=== PATIENT | male | born 1955 | race Caucasian/White ===

== ENCOUNTER 2016-07-28 16:12 | Inpatient (IN) | payer BC ==
[2016-07-28] MEDS: Sodium Chloride 0.9% 10 ML Syringe FLUSH PRN (16:37)
--- NOTE | 2016-07-28 16:40 | CT ---
Head CT Technique: Multiple axial sections through the brain were obtained. Intravenous contrast was not utilized. Comparison: No previous intracranial imaging. Findings: Small air-fluid level is noted within the left maxillary sinus. Several minimal retention cysts are partially seen within both maxillary sinuses. Mild mucosal thickening is seen within the ethmoid sinus on the left side. Uncertain if the air-fluid level is due to acute sinusitis or retained secretions. Ventricles along with basal cisterns and sulci over the convexities are within normal limits. No abnormal parenchymal densities are seen. No evidence of intracranial hemorrhage. No midline shift or mass effect is seen. No discrete calvarial abnormality is noted. Mastoid sinuses that are seen are clear. Middle ear cavities appear to be clear. Impression: 1. Sinus findings as noted above. 2. No acute intracranial abnormality is identified. Diagnostic code #3
--- NOTE | 2016-07-28 16:56 | EDM.PDOC ---
ED HPI NEURO - General Chief Complaint: Neuro Symptoms/Deficits Stated Complaint: [facility] Time Seen by Provider: 07/28/16 16:19 Source of Information: Reports: Patient, EMS History Limitations: Reports: No limitations - History of Present Illness INITIAL COMMENTS - FREE TEXT/NARRATIVE: The patient presents with left sided facial numbness, chest pain and shortness of breath. The patient says for about 3 days he has had left sided facial numbness. It comes and goes and the past 2 morning he woke up with it. He has chronic left arm numbness from neck injury with surgery so he is not sure if he has numbness into his left hand. His leg was not affected. Today he was at a [facility] and when he stood up he felt lightheaded, had some shortness of breath and some chest pressure. He went to the bathroom and did not feel any better. He told someone he did not feel right and they called 911. His blood sugar was in the 180s. He also had some of that facial numbness. It is all gone now. He has no headache, fever, chills, cough, congestion, runny nose , abdominal rodríguez or vomiting. He did feel nauseated when the CP came on. He has no history of heart problems. His BP was a little high when he arrived at 190 systolic. Timing/Duration: Reports: Day(s): (3) Location (Neuro Complaint): Reports: face Quality (Neuro Complaint): Reports: numbness (Left side) Severity: mild Improves with: Reports: None Worsens with: Reports: None Associated Symptoms: Reports: shortness of breath, chest pain. Denies: confusion, headaches, cough, fever/chills, loss of appetite, nausea/vomiting - Related Data Allergies/ADRs: Allergies Allergy/AdvReac Type Severity Reaction Status Date / Time No Known Allergies Allergy Verified 07/28/16 16:44 Home Meds: Home Meds Albuterol [Proair HFA] 2 puff INH Q4HR PRN 04/04/16 [History] Exenatide [Byetta] 10 mg SQ DAILY 04/04/16 [History] Fluticasone Propionate [Flovent HFA 110 MCG] 2 puff INH BID PRN 04/04/16 [ History] Lansoprazole 1 cap PO DAILY 04/04/16 [History] Lisinopril 10 mg PO DAILY 04/04/16 [History] Pioglitazone HCl 45 mg PO DAILY PRN 04/04/16 [History] Sildenafil [Viagra] 1 dose PO ASDIRECTED 04/04/16 [History] Triamcinolone Acetonide [Kenalog 0.1% Crm] 1 applic TOP BID 04/04/16 [History] Zolpidem [Ambien] 10 mg PO BEDTIME 04/04/16 [History] glipiZIDE [Glipizide Xl] 10 mg PO BID 04/04/16 [History] Gabapentin [Neurontin] 900 mg PO DAILY 04/05/16 [History] Past Medical History HEENT History: Reports: Other (see below) Other HEENT History: strep throat, wears glasses Respiratory History: Reports: Asthma, Bronchitis, recurrent, COPD, Other (see below) Other Respiratory History: cough, emyphysema, URI Gastrointestinal History: Reports: Chronic constipation, GERD, Other (see below) Other Gastrointestinal History: rectal bleeding Genitourinary History: Reports: Other (see below) Other Genitourinary History: anorgasminsa, ED, low testosterone, hesitency, L orchiectomy Musculoskeletal History: Reports: Other (see below) Other Musculoskeletal History: plantar fasciitis, neck surgery Neurological History: Reports: Neuropathy, peripheral Psychiatric History: Reports: Anxiety, Other (see below) Other Psychiatric History: fatigue, insomnia Endocrine/Metabolic History: Reports: Diabetes, type II, Vitamin D deficiency Oncologic (Cancer) History: Reports: Other (see below) Other Oncologic History: testicular Dermatologic History: Reports: Eczema, Other (see below) Other Dermatologic History: skin tags, onychomycisis, rask tinea pedis, eczema - Past Surgical History GI Surgical History: Reports: Colonoscopy Social & Family History - Tobacco Use Smoking Status *Q: Former Smoker Month Tobacco Last Used: 2014 Second Hand Smoke Exposure: No - Alcohol Use Days Per Week of Alcohol Use: 2 Number of Drinks Per Day: 0 Total Drinks Per Week: 0 - Recreational Drug Use Recreational Drug Use: No Drug Use in Last 12 Months: No ED ROS GENERAL - Review of Systems Review Of Systems: See Below Constitutional: Reports: no symptoms HEENT: Reports: No symptoms Respiratory: Reports: shortness of breath Cardiovascular: Reports: Chest pain, Lightheadedness Endocrine: Reports: no symptoms GI/Abdominal: Reports: No symptoms : Reports: no symptoms Musculoskeletal: Reports: no symptoms Skin: Reports: no symptoms Neurological: Reports: numbness (Left side of his face) ED EXAM, NEURO - Physical Exam Exam: See Below Exam Limited By: No limitations General Appearance: alert, no apparent distress Ears: normal external exam Nose: normal inspection Head Exam: atraumatic, normocephalic Neck: normal inspection Respiratory/Chest: no respiratory distress, lungs clear, normal breath sounds Cardiovascular: regular rate, rhythm, no edema, no murmur GI/Abdominal: soft, non tender, no organomegaly, no mass Neurological: alert, no motor/sensory deficits, oriented x 3 Back Exam: normal inspection Extremities: normal inspection EKG INTERPRETATION EKG Date: 07/28/16 Time: 16:19 Rhythm: NSR Rate (beats/min): 89 [employer]: normal P-wave: present QRS: normal ST-T: normal QT: normal Course - Vital Signs Last Recorded V/S: Last Vital Signs Temp 97.5 F 07/28/16 16:20 Pulse 91 07/28/16 16:20 Resp 18 07/28/16 16:20 BP 190/84 H 07/28/16 16:20 Pulse Ox 95 07/28/16 16:20 - Orders/Labs/Meds Orders: Active Orders 24 hr Category Date Time Status Cardiac Monitoring [RC] . DIRECTED Care 07/28/16 16:19 Active EKG Documentation Completion [RC] STAT Care 07/28/16 16:20 Active Oxygen Therapy [RC] PRN Care 07/28/16 16:19 Active Peripheral IV Care [RC] . DIRECTED Care 07/28/16 16:20 Active Chest 1V Frontal [CR] Stat Exams 07/28/16 16:20 Taken CRP [C-REACTIVE PROTEIN] [CHEM] Stat Lab 07/28/16 17:51 Ordered FOLATE, RBC [REF] Stat Lab 07/28/16 17:50 Ordered GLYCOSYLATED HEMOGLOBIN,HGBA1C [CHEM] Stat Lab 07/28/16 17:51 Ordered SEDIMENTATION RATE AUTO [HEME] Stat Lab 07/28/16 17:51 Ordered TSH [CHEM] Stat Lab 07/28/16 17:51 Ordered VITAMIN B12 [CHEM] Stat Lab 07/28/16 17:50 Ordered Sodium Chloride 0.9% [Saline Flush] Med 07/28/16 16:19 Active 10 ml FLUSH ASDIRECTED PRN Peripheral IV Insertion Adult [OM.PC] Stat Oth 07/28/16 16:19 Ordered Medication Orders Sodium Chloride (Saline Flush) 10 ml FLUSH ASDIRECTED PRN PRN Reason: Keep Vein Open Last Admin: 07/28/16 16:37 Dose: 10 ml Labs: Laboratory Tests 07/28/16 07/28/16 07/28/16 Range/Units 16:42 16:42 16:42 WBC 8.56 (4.23-9.07) K/mm3 RBC 4.88 (4.63-6.08) M/mm3 Hgb 15.5 (13.7-17.5) gm/L Hct 45.7 (40.1-51.0) % MCV 93.6 H (79.0-92.2) fl MCH 31.8 (25.7-32.2) pg MCHC 33.9 (32.2-35.5) g/dl RDW Std Deviation 50.0 H (35.1-43.9) fL Plt Count 215 (163-337) K/mm3 MPV 9.6 (9.4-12.3) fl Neut % (Auto) 70.9 H (34.0-67.9) % Lymph % (Auto) 16.1 L (21.8-53.1) % [place] % (Auto) 9.9 (5.3-12.2) % Eos % (Auto) 2.1 (0.8-7.0) Baso % (Auto) 0.5 (0.1-1.2) % Neut # 6.07 H (1.78-5.38) K/mm3 Lymph # 1.38 (1.32-3.57) K/mm3 [place] # 0.85 H (0.30-0.82) K/mm3 Eos # 0.18 (0.04-0.54) K/mm3 Baso # 0.04 (0.01-0.08) K/mm3 D-Dimer, Quantitative 0.40 (0.19-0.59) mg/L Sodium 136 (136-145) mEq/L Potassium 4.7 (3.5-5.1) mEq/L Chloride 99 (98-107) mEq/L Carbon Dioxide 26 (21-32) mEq/L Anion Gap 15.7 H (5-15) BUN 12 (7-18) mg/dL Creatinine 1.2 (0.7-1.3) mg/dL Est Cr Clr Drug Dosing 69.72 mL/min Estimated GFR (MDRD) > 60 (>60) mL/min BUN/Creatinine Ratio 10.0 L (14-18) Glucose 183 H (74-106) mg/dL Calcium 9.1 (8.5-10.1) mg/dL Total Bilirubin 0.5 (0.2-1.0) mg/dL AST 29 (15-37) U/L ALT 43 (16-63) U/L Alkaline Phosphatase 55 (46-116) U/L Troponin I < 0.017 (0.00-0.056) ng/mL Total Protein 7.6 (6.4-8.2) g/dl Albumin 3.7 (3.4-5.0) g/dl Globulin 3.9 gm/dL Albumin/Globulin Ratio 1.0 (1-2) Meds: Medications Generic Name Dose Route Start Last Admin Trade Name Freq PRN Reason Stop Dose Admin Sodium Chloride 10 ml 07/28/16 16:19 07/28/16 16:37 Saline Flush FLUSH 10 ml ASDIRECTED PRN Administration Keep Vein Open Discontinued Medications Generic Name Dose Route Start Last Admin Trade Name Freq PRN Reason Stop Dose Admin Aspirin 324 mg 07/28/16 17:48 07/28/16 17:53 Aspirin PO 07/28/16 17:49 324 mg ONETIME ONE Administration - Re-Assessments/Exams Free Text/Narrative Re-Assessment/Exam: 07/28/16 16:58 I ordered an IV saline lock, EKG, CXR, labs and CT of his head. 07/28/16 17:53 His EKG shows a NSR. His CT shows nothing acute. His CBC looks good. His glucose was elevated at 188. His troponin was negative. He had an episode when he was here. I feel he needs to be admitted. I called Dr Hutchins and she agreed to the admission but she did want me to call [facility] in [place] and see if they will take him. I did call there and talked with Dr Shah and he did not think he needed to come down at this time. I gave him some aspirin and ordered some more labs. Departure - Departure Time of Disposition: 18:00 Disposition: Admitted As Inpatient 66 Condition: good Clinical Impression: TIA (transient ischemic attack) Qualifiers: Transient cerebral ischemia type: unspecified Qualified Code(s): G45.9 - Transient cerebral ischemic attack, unspecified Chest pain Qualifiers: Chest pain type: unspecified Qualified Code(s): R07.9 - Chest pain, unspecified Dyspnea Qualifiers: Dyspnea type: unspecified Qualified Code(s): R06.00 - Dyspnea, unspecified Forms: ED Department Discharge - My Orders Last 24 Hours: My Active Orders 07/28/16 16:19 Cardiac Monitoring [RC] . DIRECTED Oxygen Therapy [RC] PRN Sodium Chloride 0.9% [Saline Flush] 10 ml FLUSH ASDIRECTED PRN Peripheral IV Insertion Adult [OM.PC] Stat 07/28/16 16:20 EKG Documentation Completion [RC] STAT Peripheral IV Care [RC] . DIRECTED Chest 1V Frontal [CR] Stat 07/28/16 17:50 FOLATE, RBC [REF] Stat VITAMIN B12 [CHEM] Stat 07/28/16 17:51 CRP [C-REACTIVE PROTEIN] [CHEM] Stat GLYCOSYLATED HEMOGLOBIN,HGBA1C [CHEM] Stat SEDIMENTATION RATE AUTO [HEME] Stat TSH [CHEM] Stat - Assessment/Plan Last 24 Hours: My Active Orders 07/28/16 16:19 Cardiac Monitoring [RC] . DIRECTED Oxygen Therapy [RC] PRN Sodium Chloride 0.9% [Saline Flush] 10 ml FLUSH ASDIRECTED PRN Peripheral IV Insertion Adult [OM.PC] Stat 07/28/16 16:20 EKG Documentation Completion [RC] STAT Peripheral IV Care [RC] . DIRECTED Chest 1V Frontal [CR] Stat 07/28/16 17:50 FOLATE, RBC [REF] Stat VITAMIN B12 [CHEM] Stat 07/28/16 17:51 CRP [C-REACTIVE PROTEIN] [CHEM] Stat GLYCOSYLATED HEMOGLOBIN,HGBA1C [CHEM] Stat SEDIMENTATION RATE AUTO [HEME] Stat TSH [CHEM] Stat
[2016-07-28] MEDS ORDERED: Aspirin 81 MG Tab.Chew PO ONE (17:48)
[2016-07-28] MEDS ORDERED: Pneumococcal Polyvalent-23 Vaccine 0.5 ML SDV IM ONE (20:03)
[2016-07-28] MEDS ORDERED: Albuterol 6.7 GM Inhaler INH PRN (20:56)
[2016-07-28] MEDS ORDERED: Fluticasone Propionate 110 MCG/Puff 12 GM Inhaler INH PRN (20:56)
--- NOTE | 2016-07-28 21:27 | PCM.HP ---
H&P History of Present Illness - General Date of Service: 07/28/16 Admit Problem/Dx: Admission Diagnosis/Problem Admission Diagnosis/Problem TIA, Transient ischemic attack Source of Information: Patient, Provider History Limitations: Reports: No limitations - History of Present Illness Initial Comments - Free Text/Narative: 60 year old male with no prior hx of CVA presents with left sided facial numbness, intermittent more persistent on the day of admission. Has a history of chronic left side numbness of U/L extremities post cervical neck surgery. He denies change in vision, speech, headache, fever, chills, LOC or trauma. His reported facial droop on the left side. The patient's neuro exam was unremarkable, except for feeling like he had numbness on the left which began near the labial fold. Stated it felt like he had had a novcaine injection. Onset of Symptoms: Reports: gradual Symptom Onset Date: 07/26/16 Duration of Symptoms: Reports: Day(s):, Getting worse, Intermittent Location: Reports: face (left side) Quality: Reports: Same as previous episode, Other (numbness) Severity: moderate Improves with: Reports: None Worsens with: Reports: None Associated Symptoms: Reports: weakness (LE) - Related Data Allergies/Adverse Reactions: Allergies Allergy/AdvReac Type Severity Reaction Status Date / Time No Known Allergies Allergy Verified 07/28/16 16:44 Home Medications: Home Meds Albuterol [Proair HFA] 2 puff INH Q4HR PRN 04/04/16 [History] Exenatide [Byetta] 10 mg SQ DAILY 04/04/16 [History] Fluticasone Propionate [Flovent HFA 110 MCG] 2 puff INH BID PRN 04/04/16 [ History] Lansoprazole 1 cap PO DAILY 04/04/16 [History] Lisinopril 10 mg PO DAILY 04/04/16 [History] Pioglitazone HCl 45 mg PO DAILY PRN 04/04/16 [History] Sildenafil [Viagra] 1 dose PO ASDIRECTED 04/04/16 [History] Triamcinolone Acetonide [Kenalog 0.1% Crm] 1 applic TOP BID 04/04/16 [History] Zolpidem [Ambien] 10 mg PO BEDTIME 04/04/16 [History] glipiZIDE [Glipizide Xl] 10 mg PO BID 04/04/16 [History] Gabapentin [Neurontin] 900 mg PO DAILY 04/05/16 [History] Past Medical History HEENT History: Reports: Other (see below) Other HEENT History: strep throat, wears glasses Respiratory History: Reports: Asthma, Bronchitis, recurrent, COPD, Other (see below) Other Respiratory History: cough, emyphysema, URI Gastrointestinal History: Reports: Chronic constipation, GERD, Other (see below) Other Gastrointestinal History: rectal bleeding Genitourinary History: Reports: Other (see below) Other Genitourinary History: anorgasminsa, ED, low testosterone, hesitency, L orchiectomy Musculoskeletal History: Reports: Other (see below) Other Musculoskeletal History: plantar fasciitis, neck surgery Neurological History: Reports: Neuropathy, peripheral Psychiatric History: Reports: Anxiety, Other (see below) Other Psychiatric History: fatigue, insomnia Endocrine/Metabolic History: Reports: Diabetes, type II, Obesity/BMI 30+, Vitamin D deficiency Oncologic (Cancer) History: Reports: Other (see below) 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 Dermatologic History: Reports: Eczema, Other (see below) Other Dermatologic History: skin tags, onychomycisis, rask tinea pedis, eczema - Past Surgical History GI Surgical History: Reports: Colonoscopy Endocrine Surgical History: Reports: None Neurological Surgical History: Reports: None Social & Family History - Family History Family Medical History: Noncontributory - Tobacco Use Smoking Status *Q: Former Smoker Years of Tobacco use: 40 Packs/Tins Daily: 1 Used Tobacco, but Quit: Yes Month Tobacco Last Used: 05/18/15 Second Hand Smoke Exposure: No - Caffeine Use Caffeine Use: Reports: Coffee Other Caffeine Use: 2 cups coffee daily - Alcohol Use Days Per Week of Alcohol Use: 2 Number of Drinks Per Day: 0 Total Drinks Per Week: 0 - Recreational Drug Use Recreational Drug Use: No Drug Use in Last 12 Months: No H&P Review of Systems - Review of Systems: Review Of Systems: See Below General: Reports: no symptoms HEENT: Reports: no symptoms Pulmonary: Reports: no symptoms Cardiovascular: Reports: no symptoms Gastrointestinal: Reports: No symptoms Genitourinary: Reports: no symptoms Musculoskeletal: Reports: no symptoms Skin: Reports: no symptoms Psychiatric: Reports: no symptoms Neurological: Reports: other (facial numbness) Hematologic/Lymphatic: Reports: no symptoms Immunologic: Reports: no symptoms Exam - Exam Exam: See Below - Vital Signs Vital Signs: Last Vital Signs Temp 36.6 C 07/28/16 19:36 Pulse 87 07/28/16 19:36 Resp 18 07/28/16 19:36 BP 150/82 H 07/28/16 19:36 Pulse Ox 95 07/28/16 19:36 Weight: 127.641 kg - Exam Quality Assessment: supplemental oxygen, DVT prophylaxis General: alert, oriented, cooperative HEENT: Conjunctiva clear, EOMI, Nares patent, Normal nasal septum, Pupils equal , Pupils reactive Neck: supple, trachea midline Lungs: Normal respiratory effort Cardiovascular: regular rate, regular rhythm Abdomen: normal bowel sounds, soft (Male) Exam: Deferred Rectal (Males) Exam: Deferred Back Exam: normal inspection Extremities: normal pulses Skin: warm Neurological: cranial nerves intact, reflexes equal bilateral, normal gait, normal speech, other (numbness left sided labia fold to chin) Neuro Extensive - Mental Status: alert, oriented x3, normal mood/affect, normal cognition, memory intact Neuro Extensive - Motor, Sensory, Reflexes: CN II-XII intact Psychiatric: alert, normal affect, normal mood - Patient Data Lab Results last 24 hrs: Laboratory Results - last 24 hr 07/28/16 Range/Units 20:41 POC Glucose 205 H (70-105) mg/dL Result Diagrams: 07/29/16 05:41 07/29/16 05:41 *Q Meaningful Use (ADM) - VTE *Q VTE Criteria *Q: - Stroke *Q Stroke Criteria *Q: - AMI *Q AMI Criteria *Q: Problem List Initiated/Reviewed/Updated: Yes Orders Last 24hrs: Active Orders 24 hr Category Date Time Status Antiembolic Devices [RC] PER UNIT ROUTINE Care 07/28/16 21:17 Active Bedrest Bathroom Privileges [RC] ASDIRECTED Care 07/28/16 21:04 Active Blood Glucose Check, Bedside [RC] QIDACANDBED Care 07/28/16 20:47 Active Neuro Check [RC] BID Care 07/28/16 21:03 Active Vital Signs [RC] PER UNIT ROUTINE Care 07/28/16 21:04 Active Consult to Service Unit Operator Oil Well [Consult to Diabetic Nurse Cons 07/29/16 14:00 Active Specialist] [CONS] Routine Consult to Occupational Therapy [OT Evaluation and Cons 07/30/16 13:00 Active Treatment] [CONS] Routine Consult to Physical Therapy [PT Evaluation and Cons 07/29/16 12:00 Active Treatment] [CONS] Routine Consult to Clothes Designer [CONS] Routine Cons 07/29/16 09:00 Active ADA Diabetic [[employer] Diet] [DIET Diet 07/29/16 Breakfast Active ] Brain w wo Cont [MR] Routine Exams 07/29/16 08:00 Ordered Carotid Comp [US] Routine Exams 07/29/16 09:00 Ordered Echo Comp wo Cont [US] Routine Exams 07/29/16 09:00 Ordered BASIC METABOLIC PANEL,BMP [CHEM] DAILY Lab 07/29/16 05:00 Ordered BASIC METABOLIC PANEL,BMP [CHEM] DAILY Lab 07/30/16 05:00 Ordered BASIC METABOLIC PANEL,BMP [CHEM] DAILY Lab 07/31/16 05:00 Ordered CBC WITH AUTO DIFF [HEME] DAILY Lab 07/29/16 05:00 Ordered CBC WITH AUTO DIFF [HEME] DAILY Lab 07/30/16 05:00 Ordered CBC WITH AUTO DIFF [HEME] DAILY Lab 07/31/16 05:00 Ordered LIPID PANEL [CHEM] Routine Lab 07/29/16 05:00 Ordered Albuterol [Proventil HFA] Med 07/28/16 20:56 Active 0 gm INH Q4H PRN Aspirin [Halfprin] Med 07/29/16 09:00 Active 81 mg PO DAILY Enoxaparin [Lovenox] Med 07/29/16 09:00 Ordered 40 mg SUBCUT DAILY Fluticasone Propionate [Flovent HFA 110 MCG] Med 07/28/16 20:56 Ordered DOSE gm INH BID PRN Gabapentin [Neurontin] Med 07/29/16 09:00 Ordered 900 mg PO DAILY Insulin Aspart [NovoLOG] Med 07/28/16 22:00 Active See Protocol SUBCUT QIDACANDBED Lisinopril [Prinivil] Med 07/29/16 09:00 Ordered 10 mg PO DAILY Triamcinolone Acetonide [Triamcinolone Acetonide 0.1% Med 07/28/16 21:00 Ordered Crm] DOSE gm TOP BID Zolpidem [Ambien] Med 07/28/16 21:00 Ordered 10 mg PO BEDTIME TRINI Hose [Antiembolic Hose] [OM.PC] Routine Oth 07/28/16 21:17 Ordered Medication Orders Albuterol (Proventil Hfa) 0 gm INH Q4H PRN PRN Reason: Shortness of Breath Aspirin (Halfprin) 81 mg PO DAILY BRIONNA Fluticasone Propionate (Flovent Hfa 110 Mcg) gm INH BID PRN PRN Reason: Shortness of Breath Gabapentin (Neurontin) 900 mg PO DAILY BRIONNA Insulin Aspart (Novolog) 0 unit SUBCUT QIDACANDBED BRIONNA PRN Reason: Protocol Lisinopril (Prinivil) 10 mg PO DAILY [facility] Sodium Chloride (Saline Flush) 10 ml FLUSH ASDIRECTED PRN PRN Reason: Keep Vein Open Last Admin: 07/28/16 16:37 Dose: 10 ml Triamcinolone Acetonide (Triamcinolone Acetonide 0.1% Crm) gm TOP BID BRIONNA Zolpidem Tartrate (Ambien) 10 mg PO BEDTIME BRIONNA Assessment/Plan Comment:: Impression: TIA recurrence over 3 days, more persistent on the day of admission HTN, systolic markedly elevated on presentation Neuro eval on going, labs are pending History of cervical procedure with long standing left sided extremity numbness, relatively unchanged. Chronic DM COPD Obesity GERD Vitamin D deficiency Anxiety Plan: Home meds, follow BP, will need higher at least SBP>130 for now. Swallow eval, bedside ADA, 2000 after eval Novolog SS, mild CVA protocol Imaging on 07/29/16 DVT/GI prophylaxis Consults: PT/OT/SW/DM educator
[2016-07-28] MEDS: Zolpidem 10 MG Tab PO SCH (21:41)
[2016-07-28] MEDS: Insulin Aspart 100 Units/ML 3 ML Pen SUBCUT SCH (21:41)
[2016-07-28] MEDS: Triamcinolone Acetonide 0.1% Crm 15 GM Tube TOP SCH (21:44)
--- NOTE | 2016-07-29 07:36 | CR ---
Chest: Portable view of the chest was obtained. Comparison: Previous chest x-ray of 03/06/16. Heart size and mediastinum are within normal limits for portable technique. Lungs are clear with no acute infiltrates. Degenerative endplate spurring is seen within the spine. Previous cervical spine surgery is also noted. Old healed right clavicle deformity is seen. Impression: 1. Incidental bone findings. 2. Nothing acute is identified on portable chest x-ray. Diagnostic code #2
[2016-07-29] MEDS ORDERED: Diazepam 5 MG Tab PO ONE (07:55)
[2016-07-29] MEDS: Lisinopril 10 MG Tab PO SCH (08:01)
[2016-07-29] MEDS: Aspirin 81 MG Tab.EC PO SCH (08:01)
[2016-07-29] MEDS: Gabapentin 300 MG Cap PO SCH (08:01)
[2016-07-29] MEDS: Enoxaparin 40 MG/0.4 ML Syringe SUBCUT SCH (08:03)
[2016-07-29] MEDS: Insulin Aspart 100 Units/ML 3 ML Pen SUBCUT SCH ×4 (08:04→21:09)
[2016-07-29] MEDS: Triamcinolone Acetonide 0.1% Crm 15 GM Tube TOP SCH ×2 (08:31→21:17)
[2016-07-29] MEDS ORDERED: Diphtheria,Pertussis(Acell),Tetanus Vaccine 0.5 ML SDV inactive IM ONE (09:27)
[2016-07-29] MEDS ORDERED: Pneumococcal Polyvalent-23 Vaccine 0.5 ML SDV IM ONE (09:27)
[2016-07-29] MEDS ORDERED: Gadobenate Dimeglumine 529 MG/ML 20 ML SDV IVPUSH ONE (11:40)
[2016-07-29] MEDS: Sodium Chloride 0.9% 10 ML Syringe FLUSH PRN (12:17)
[2016-07-29] MEDS ORDERED: Acetaminophen 325 MG Tab PO PRN (13:44)
--- NOTE | 2016-07-29 14:18 | MR ---
MRI brain (with and without contrast) Technique: T1 sagittal; T2, T2 FLAIR, diffusion and T1 axial; T1 sagittal; T1 coronal; post-gadolinium T1 axial and post-gadolinium T1 coronal images were obtained. Comparison: Previous head CT study of 07/28/16. Findings: Ventricles along with basal cisterns and sulci over the convexities appear within normal limits for the patient's age. Mild mucosal thickening seen within both maxillary sinuses as well as bilateral retention cysts. Mild mucosal thickening seen within the ethmoid sinuses. Normal signal void is seen within the major cerebral arteries within the skull base. No acute diffusion abnormality is identified. No abnormal signal is seen within the brain parenchyma. No midline shift or mass effect is seen. No abnormal enhancement identified within the brain parenchyma. Impression: 1. Chronic appearing sinus findings as described above. 2. Other portions of the MRI study of the brain appear unremarkable. No acute diffusion abnormalities are seen. Diagnostic code #2
--- NOTE | 2016-07-29 14:42 | US ---
Carotid ultrasound: Duplex and color flow imaging was obtained of the carotid arteries. Comparison: No previous study. No significant plaque is identified. Velocity measurements Right side: CCA has a peak systolic velocity of 0.79 m/s. ICA has a peak systolic velocity of 0.75 m/s and peak end-diastolic velocity of 0.25 m/s. ECA has a peak systolic velocity of 1.05 m/s. Vertebral artery has a peak systolic velocity of 0.44 m/s. ICA/CCA ratio is 0.94. Left side: CCA has a peak systolic velocity of 1.09 m/s. ICA has a peak systolic velocity of 0.76 m/s with peak end-diastolic velocity of 0.21 m/s. ECA has a peak systolic velocity of 0.92 m/s. Vertebral artery has a peak systolic velocity of 0.39 m/s. ICA/CCA ratio is 0.70. Impression: 1. No significant plaque. Normal velocity measurements are noted. Diagnostic code #1
--- NOTE | 2016-07-29 19:44 | PCM.PN ---
- General Info Date of Service: 07/29/16 Functional Status: Reports: pain controlled, tolerating diet, ambulating, urinating - Review of Systems General: Reports: no symptoms HEENT: Reports: no symptoms Pulmonary: Reports: no symptoms Cardiovascular: Reports: no symptoms Gastrointestinal: Reports: No symptoms Genitourinary: Reports: no symptoms Musculoskeletal: Reports: no symptoms Skin: Reports: no symptoms Neurological: Reports: paresthesia (facial) Psychiatric: Reports: no symptoms - Patient Data Vitals - most recent: Last Vital Signs Temp 37.2 C 07/29/16 15:28 Pulse 83 07/29/16 15:28 Resp 18 07/29/16 15:28 BP 152/88 H 07/29/16 15:28 Pulse Ox 93 L 07/29/16 15:28 Weight - most recent: 127.641 kg I&O - last 24 hours: Intake & Output 07/29/16 07/29/16 07/29/16 06:59 14:59 22:59 Intake Total 450 1060 800 Output Total 1100 4600 Balance -650 1060 -3800 Lab Results last 24 hrs: Laboratory Results - last 24 hr 07/28/16 07/29/16 07/29/16 Range/Units 20:41 05:41 05:41 WBC 5.91 (4.23-9.07) K/mm3 RBC 4.74 (4.63-6.08) M/mm3 Hgb 15.0 (13.7-17.5) gm/L Hct 44.8 (40.1-51.0) % MCV 94.5 H (79.0-92.2) fl MCH 31.6 (25.7-32.2) pg MCHC 33.5 (32.2-35.5) g/dl RDW Std Deviation 50.8 H (35.1-43.9) fL Plt Count 216 (163-337) K/mm3 MPV 10.5 (9.4-12.3) fl Neut % (Auto) 58.4 (34.0-67.9) % Lymph % (Auto) 18.8 L (21.8-53.1) % Island % (Auto) 17.3 H (5.3-12.2) % Eos % (Auto) 4.7 (0.8-7.0) Baso % (Auto) 0.5 (0.1-1.2) % Neut # 3.45 (1.78-5.38) K/mm3 Lymph # 1.11 L (1.32-3.57) K/mm3 Island # 1.02 H (0.30-0.82) K/mm3 Eos # 0.28 (0.04-0.54) K/mm3 Baso # 0.03 (0.01-0.08) K/mm3 Manual Slide Review Normal smear Sodium 135 L (136-145) mEq/L Potassium 4.3 (3.5-5.1) mEq/L Chloride 100 (98-107) mEq/L Carbon Dioxide 28 (21-32) mEq/L Anion Gap 11.3 (5-15) BUN 11 (7-18) mg/dL Creatinine 1.2 (0.7-1.3) mg/dL Est Cr Clr Drug Dosing 69.72 mL/min Estimated GFR (MDRD) > 60 (>60) mL/min BUN/Creatinine Ratio 9.2 L (14-18) Glucose 180 H (74-106) mg/dL POC Glucose 205 H (70-105) mg/dL Calcium 8.5 (8.5-10.1) mg/dL Triglycerides 153 H (<150) mg/dL Cholesterol 178 (<200) mg/dL LDL Cholesterol Direct 110 H* (<100) mg/dL HDL Cholesterol 55.0 (40-59) mg/dL 07/29/16 07/29/16 07/29/16 Range/Units 06:10 12:27 16:48 WBC (4.23-9.07) K/mm3 RBC (4.63-6.08) M/mm3 Hgb (13.7-17.5) gm/L Hct (40.1-51.0) % MCV (79.0-92.2) fl MCH (25.7-32.2) pg MCHC (32.2-35.5) g/dl RDW Std Deviation (35.1-43.9) fL Plt Count (163-337) K/mm3 MPV (9.4-12.3) fl Neut % (Auto) (34.0-67.9) % Lymph % (Auto) (21.8-53.1) % Island % (Auto) (5.3-12.2) % Eos % (Auto) (0.8-7.0) Baso % (Auto) (0.1-1.2) % Neut # (1.78-5.38) K/mm3 Lymph # (1.32-3.57) K/mm3 Island # (0.30-0.82) K/mm3 Eos # (0.04-0.54) K/mm3 Baso # (0.01-0.08) K/mm3 Manual Slide Review Sodium (136-145) mEq/L Potassium (3.5-5.1) mEq/L Chloride (98-107) mEq/L Carbon Dioxide (21-32) mEq/L Anion Gap (5-15) BUN (7-18) mg/dL Creatinine (0.7-1.3) mg/dL Est Cr Clr Drug Dosing mL/min Estimated GFR (MDRD) (>60) mL/min BUN/Creatinine Ratio (14-18) Glucose (74-106) mg/dL POC Glucose 189 H 210 H 159 H (70-105) mg/dL Calcium (8.5-10.1) mg/dL Triglycerides (<150) mg/dL Cholesterol (<200) mg/dL LDL Cholesterol Direct (<100) mg/dL HDL Cholesterol (40-59) mg/dL Med Orders - Current: Current Medications Acetaminophen (Tylenol) 650 mg PO Q4H PRN PRN Reason: Pain/Fever Last Admin: 07/29/16 13:50 Dose: 650 mg Albuterol (Proventil Hfa) 0 gm INH Q4H PRN PRN Reason: Shortness of Breath Aspirin (Halfprin) 81 mg PO DAILY [facility] Last Admin: 07/29/16 08:01 Dose: 81 mg Enoxaparin Sodium (Lovenox) 40 mg SUBCUT DAILY [facility] Last Admin: 07/29/16 08:03 Dose: 40 mg Fluticasone Propionate (Flovent Hfa 110 Mcg) 0 gm INH BID PRN PRN Reason: Shortness of Breath Gabapentin (Neurontin) 900 mg PO DAILY [facility] Last Admin: 07/29/16 08:01 Dose: 900 mg Insulin Aspart (Novolog) 0 unit SUBCUT QIDACANDBED [facility] PRN Reason: Protocol Last Admin: 07/29/16 17:35 Dose: 1 units Lisinopril (Prinivil) 10 mg PO DAILY [facility] Last Admin: 07/29/16 08:01 Dose: 10 mg Methylprednisolone Sodium Succinate (Solu-Medrol) 80 mg IVPUSH Q8H [facility] Sodium Chloride (Saline Flush) 10 ml FLUSH ASDIRECTED PRN PRN Reason: Keep Vein Open Last Admin: 07/29/16 12:17 Dose: 10 ml Triamcinolone Acetonide (Triamcinolone Acetonide 0.1% Crm) 0 gm TOP BID [facility] Last Admin: 07/29/16 08:31 Dose: Not Given Zolpidem Tartrate (Ambien) 10 mg PO BEDTIME [facility] Last Admin: 07/28/16 21:41 Dose: 10 mg Discontinued Medications Aspirin (Aspirin) 324 mg PO ONETIME ONE Stop: 07/28/16 17:49 Last Admin: 07/28/16 17:53 Dose: 324 mg Diazepam (Valium.) 5 mg PO ONETIME ONE Stop: 07/29/16 07:56 Last Admin: 07/29/16 08:01 Dose: 5 mg Diphtheria/Tetanus/Acell Pertussis (Boostrix) 0.5 ml IM .ONCE ONE Stop: 07/29/16 09:28 Gadobenate Dimeglumine (Multihance) 20 ml IVPUSH ONETIME ONE Stop: 07/29/16 11:41 Last Admin: 07/29/16 12:17 Dose: 20 ml Pneumococcal Polyvalent Vaccine (Pneumovax 23) 0.5 ml IM .ONCE ONE Stop: 07/28/16 20:04 Pneumococcal Polyvalent Vaccine (Pneumovax 23) 0.5 ml IM .ONCE ONE Stop: 07/29/16 09:28 - Exam Quality Assessment: supplemental oxygen, DVT prophylaxis General: alert, oriented, cooperative, no acute distress HEENT: Pupils equal, Pupils reactive, EOMI Neck: supple, trachea midline Lungs: Normal respiratory effort Cardiovascular: regular rate, regular rhythm Abdomen: bowel sounds present, soft, no tenderness, no distension (Male) Exam: Deferred Back Exam: normal inspection Extremities: normal pulses Skin: warm Neurological: no new focal deficit, normal gait, normal speech Psy/Mental Status: alert, normal affect, normal mood - Problem List Review Problem List Initiated/Reviewed/Updated: Yes - My Orders Last 24 Hours: My Active Orders 07/28/16 20:47 Blood Glucose Check, Bedside [RC] QIDACANDBED 07/28/16 20:56 Albuterol [Proventil HFA] 0 gm INH Q4H PRN Fluticasone Propionate [Flovent HFA 110 MCG] 0 gm INH BID PRN 07/28/16 21:00 Triamcinolone Acetonide [Triamcinolone Acetonide 0.1% Crm] 0 gm TOP BID Zolpidem [Ambien] 10 mg PO BEDTIME 07/28/16 21:03 Neuro Check [RC] BID 07/28/16 21:04 Bedrest Bathroom Privileges [RC] ASDIRECTED Vital Signs [RC] 03,09,15,21 07/28/16 21:17 Antiembolic Devices [RC] QSHIFT TRINI Hose [Antiembolic Hose] [OM.PC] Routine 07/28/16 22:00 Insulin Aspart [NovoLOG] See Protocol SUBCUT QIDACANDBED 07/29/16 09:00 Consult to Clam Grader [CONS] Routine Aspirin [Halfprin] 81 mg PO DAILY Enoxaparin [Lovenox] 40 mg SUBCUT DAILY Gabapentin [Neurontin] 900 mg PO DAILY Lisinopril [Prinivil] 10 mg PO DAILY 07/29/16 09:27 Vaccines to be Administered [RC] PER UNIT ROUTINE 07/29/16 12:00 Consult to Physical Therapy [PT Evaluation and Treatment] [CONS] Routine 07/29/16 13:44 Acetaminophen [Tylenol] 650 mg PO Q4H PRN 07/29/16 13:51 Resuscitation Status Routine 07/29/16 14:00 Consult to Shell Mold Bonder [Consult to Diabetic Nurse Specialist] [CONS] Routine 07/29/16 19:30 methylPREDNISolone Sod Succ [Solu-MEDROL] 80 mg IVPUSH Q8H 07/29/16 Breakfast ADA Diabetic [[place] [employer] Diet] [DIET] 07/30/16 05:00 BASIC METABOLIC PANEL,BMP [CHEM] DAILY CBC WITH AUTO DIFF [HEME] DAILY 07/30/16 13:00 Consult to Occupational Therapy [OT Evaluation and Treatment] [CONS] Routine 07/31/16 05:00 BASIC METABOLIC PANEL,BMP [CHEM] DAILY CBC WITH AUTO DIFF [HEME] DAILY - Plan Plan:: Impression: 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 Chronic DM COPD Obesity GERD Vitamin D deficiency Anxiety Plan: Start solumedrol Home meds. Novolog SS, mild CVA protocol DVT/GI prophylaxis Consults: PT/OT/SW/DM educator Neuro appt at DC
[2016-07-29] MEDS: methylPREDNISolone Sodium Succinate 40 MG/1 ML SDV IVPUSH SCH (21:03)
[2016-07-29] MEDS: Zolpidem 10 MG Tab PO SCH (21:03)
[2016-07-30] MEDS: methylPREDNISolone Sodium Succinate 40 MG/1 ML SDV IVPUSH SCH ×2 (04:56→11:06)
[2016-07-30] MEDS: Insulin Aspart 100 Units/ML 3 ML Pen SUBCUT SCH ×2 (08:05→12:33)
[2016-07-30] MEDS: Gabapentin 300 MG Cap PO SCH (08:05)
[2016-07-30] MEDS: Aspirin 81 MG Tab.EC PO SCH (08:05)
[2016-07-30] MEDS: Enoxaparin 40 MG/0.4 ML Syringe SUBCUT SCH (08:05)
[2016-07-30] MEDS: Lisinopril 10 MG Tab PO SCH (08:05)
[2016-07-30 08:06] VITALS: BP 155/82
[2016-07-30] MEDS: Triamcinolone Acetonide 0.1% Crm 15 GM Tube TOP SCH (08:06)
--- NOTE | 2016-07-30 12:14 | PCM.DCSUM1 ---
<Candida Hutchins M - Last Filed: 07/30/16 20:03> Discharge Summary - Hospital Course Free Text/Narrative:: See above, for follow up. - Discharge Data Discharge Disposition: Home, Self-Care 01 Condition: Good - Patient Summary/Data Consults: Consultations 07/29/16 09:00 Consult to Director Of Communications [CONS] Routine 07/29/16 12:00 Consult to Physical Therapy [PT Evaluation and Treatment] [CONS] Routine 07/29/16 14:00 Consult to Supplier Manager [Consult to Diabetic Nurse Specialist] [CONS] Routine - Discharge Plan Prescriptions/Med Rec: Aspirin [Halfprin] 81 mg PO DAILY #30 tab.ec Prednisone [IJD: predniSONE] 20 mg PO WITHBREAKFAST #5 tab Simvastatin [Zocor] 10 mg PO BEDTIME #10 tablet Home Medications: Home Meds Albuterol [Proair HFA] 2 puff INH Q4HR PRN 04/04/16 [History] Exenatide [Byetta] 10 mg SQ DAILY 04/04/16 [History] Fluticasone Propionate [Flovent HFA 110 MCG] 2 puff INH BID PRN 04/04/16 [ History] Lansoprazole 1 cap PO DAILY 04/04/16 [History] Lisinopril 10 mg PO DAILY 04/04/16 [History] Pioglitazone HCl 45 mg PO DAILY PRN 04/04/16 [History] Sildenafil [Viagra] 1 dose PO ASDIRECTED 04/04/16 [History] Triamcinolone Acetonide [Kenalog 0.1% Crm] 1 applic TOP BID 04/04/16 [History] Zolpidem [Ambien] 10 mg PO BEDTIME 04/04/16 [History] glipiZIDE [Glipizide Xl] 10 mg PO BID 04/04/16 [History] Gabapentin [Neurontin] 900 mg PO DAILY 04/05/16 [History] Aspirin [Halfprin] 81 mg PO DAILY #30 tab.ec 07/30/16 [Rx] Prednisone [IJD: predniSONE] 20 mg PO WITHBREAKFAST #5 tab 07/30/16 [Rx] Simvastatin [Zocor] 10 mg PO BEDTIME #10 tablet 07/30/16 [Rx] Patient Handouts: Smoking Cessation, Tips for Success, [id number], Asthma, Adult, Smoking Hazards, Transient Ischemic Attack, [id number] Forms: ED Department Discharge Referrals: Luba Guaman VOLCANOLOGY TEACHER [Primary Care Provider] - 08/06/16 10:30 am (Please follow up with Luba Guaman on Friday at 10:30am) - Patient Data Vitals - Most Recent: Last Vital Signs Temp 37.1 C 07/30/16 08:23 Pulse 77 07/30/16 08:23 Resp 20 07/30/16 08:23 BP 155/82 H 07/30/16 08:23 Pulse Ox 95 07/30/16 08:23 I&O - Last 24 hours: Intake & Output 07/30/16 07/30/16 07/30/16 06:59 14:59 22:59 Intake Total 400 320 Balance 400 320 Lab Results - Last 24 hrs: Laboratory Results - last 24 hr 07/29/16 07/30/16 07/30/16 Range/Units 21:09 06:26 06:50 WBC 7.50 (4.23-9.07) K/mm3 RBC 5.02 (4.63-6.08) M/mm3 Hgb 15.9 (13.7-17.5) gm/L Hct 47.3 (40.1-51.0) % MCV 94.2 H (79.0-92.2) fl MCH 31.7 (25.7-32.2) pg MCHC 33.6 (32.2-35.5) g/dl RDW Std Deviation 50.1 H (35.1-43.9) fL Plt Count 219 (163-337) K/mm3 MPV 9.9 (9.4-12.3) fl Neut % (Auto) 85.1 H (34.0-67.9) % Lymph % (Auto) 12.9 L (21.8-53.1) % Harney % (Auto) 1.5 L (5.3-12.2) % Eos % (Auto) 0 L (0.8-7.0) Baso % (Auto) 0.1 (0.1-1.2) % Neut # 6.38 H (1.78-5.38) K/mm3 Lymph # 0.97 L (1.32-3.57) K/mm3 Harney # 0.11 L (0.30-0.82) K/mm3 Eos # 0.00 L (0.04-0.54) K/mm3 Baso # 0.01 (0.01-0.08) K/mm3 Manual Slide Review Abnormal smear ESR (0-15) mm/hr Sodium (136-145) mEq/L Potassium (3.5-5.1) mEq/L Chloride (98-107) mEq/L Carbon Dioxide (21-32) mEq/L Anion Gap (5-15) BUN (7-18) mg/dL Creatinine (0.7-1.3) mg/dL Est Cr Clr Drug Dosing mL/min Estimated GFR (MDRD) (>60) mL/min BUN/Creatinine Ratio (14-18) Glucose (74-106) mg/dL POC Glucose 241 H 300 H (70-105) mg/dL Calcium (8.5-10.1) mg/dL 07/30/16 07/30/16 07/30/16 Range/Units 06:50 06:50 11:05 WBC (4.23-9.07) K/mm3 RBC (4.63-6.08) M/mm3 Hgb (13.7-17.5) gm/L Hct (40.1-51.0) % MCV (79.0-92.2) fl MCH (25.7-32.2) pg MCHC (32.2-35.5) g/dl RDW Std Deviation (35.1-43.9) fL Plt Count (163-337) K/mm3 MPV (9.4-12.3) fl Neut % (Auto) (34.0-67.9) % Lymph % (Auto) (21.8-53.1) % [place]ney % (Auto) (5.3-12.2) % Eos % (Auto) (0.8-7.0) Baso % (Auto) (0.1-1.2) % Neut # (1.78-5.38) K/mm3 Lymph # (1.32-3.57) K/mm3 Harney # (0.30-0.82) K/mm3 Eos # (0.04-0.54) K/mm3 Baso # (0.01-0.08) K/mm3 Manual Slide Review ESR 14 (0-15) mm/hr Sodium 133 L (136-145) mEq/L Potassium 4.7 (3.5-5.1) mEq/L Chloride 99 (98-107) mEq/L Carbon Dioxide 23 (21-32) mEq/L Anion Gap 15.7 H (5-15) BUN 17 (7-18) mg/dL Creatinine 1.2 (0.7-1.3) mg/dL Est Cr Clr Drug Dosing 69.72 mL/min Estimated GFR (MDRD) > 60 (>60) mL/min BUN/Creatinine Ratio 14.2 (14-18) Glucose 296 H (74-106) mg/dL POC Glucose 274 H (70-105) mg/dL Calcium 8.9 (8.5-10.1) mg/dL Med Orders - Current: Current Medications Discontinued Medications Acetaminophen (Tylenol) 650 mg PO Q4H PRN PRN Reason: Pain/Fever Last Admin: 07/29/16 13:50 Dose: 650 mg Albuterol (Proventil Hfa) 0 gm INH Q4H PRN PRN Reason: Shortness of Breath Aspirin (Aspirin) 324 mg PO ONETIME ONE Stop: 07/28/16 17:49 Last Admin: 07/28/16 17:53 Dose: 324 mg Aspirin (Halfprin) 81 mg PO DAILY [facility] Last Admin: 07/30/16 08:05 Dose: 81 mg Diazepam (Valium.) 5 mg PO ONETIME ONE Stop: 07/29/16 07:56 Last Admin: 07/29/16 08:01 Dose: 5 mg Diphtheria/Tetanus/Acell Pertussis (Boostrix) 0.5 ml IM .ONCE ONE Stop: 07/29/16 09:28 Last Admin: 07/30/16 12:35 Dose: 0.5 ml Enoxaparin Sodium (Lovenox) 40 mg SUBCUT DAILY [facility] Last Admin: 07/30/16 08:05 Dose: 40 mg Fluticasone Propionate (Flovent Hfa 110 Mcg) 0 gm INH BID PRN PRN Reason: Shortness of Breath Gabapentin (Neurontin) 900 mg PO DAILY [facility] Last Admin: 07/30/16 08:05 Dose: 900 mg Gadobenate Dimeglumine (Multihance) 20 ml IVPUSH ONETIME ONE Stop: 07/29/16 11:41 Last Admin: 07/29/16 12:17 Dose: 20 ml Insulin Aspart (Novolog) 0 unit SUBCUT QIDACANDBED [facility] PRN Reason: Protocol Last Admin: 07/30/16 12:33 Dose: 2 units Lisinopril (Prinivil) 10 mg PO DAILY [facility] Last Admin: 07/30/16 08:05 Dose: 10 mg Methylprednisolone Sodium Succinate (Solu-Medrol) 80 mg IVPUSH Q8H [facility] Last Admin: 07/30/16 11:06 Dose: 80 mg Pneumococcal Polyvalent Vaccine (Pneumovax 23) 0.5 ml IM .ONCE ONE Stop: 07/28/16 20:04 Pneumococcal Polyvalent Vaccine (Pneumovax 23) 0.5 ml IM .ONCE ONE Stop: 07/29/16 09:28 Sodium Chloride (Saline Flush) 10 ml FLUSH ASDIRECTED PRN PRN Reason: Keep Vein Open Last Admin: 07/29/16 12:17 Dose: 10 ml Triamcinolone Acetonide (Triamcinolone Acetonide 0.1% Crm) 0 gm TOP BID [facility] Last Admin: 07/30/16 08:06 Dose: Not Given Zolpidem Tartrate (Ambien) 10 mg PO BEDTIME [facility] Last Admin: 07/29/16 21:03 Dose: 10 mg *Q Meaningful Use (DIS) - VTE *Q VTE Criteria *Q: - Stroke *Q Stroke Criteria *Q: - AMI *Q AMI Criteria *Q: <Angela Ellis - Last Filed: 07/31/16 13:01> Discharge Summary - Hospital Course Free Text/Narrative:: 60 year old male with no prior hx of CVA presents with left sided facial numbness, intermittent more persistent on the day of admission. Has a history of chronic left side numbness of U/L extremities post cervical neck surgery. He denies change in vision, speech, headache, fever, chills, LOC or trauma. His reported facial droop on the left side. The patient's neuro exam was unremarkable, except for feeling like he had numbness on the left which began near the labial fold. Stated it felt like he had had a novcaine injection. Hospitalist service was consulted for admission for TIA evaluation. He underwent evaluation with negative head CT in the ED. MRI of brain and carotid US were negative for acute findings or plaque/blockage during his hospital stay. Telemetry was unremarkable for arrhythmias. EKG's were unremarkable for acute changes. Troponins were also negative. Echocardiogram was obtained with normal EF, no valvular abnormalities noted. He will be discharged home on statin therapy, baby aspirin and low dose prednisone as Dr. Hutchins did think this could have been a trigeminal neuritis type component. He has been scheduled for outpatient follow up with Neurology in [place] in mid-July. He should otherwise follow up with his PCP within 5-7 days for close follow up after discharge. - Discharge Data Discharge Date: 07/30/16 (admit date 07/28/16) - Patient Summary/Data Operative Procedure(s) Performed: None Complications: None Consults: Consultations 07/29/16 09:00 Consult to Director Of Communications [CONS] Routine 07/29/16 12:00 Consult to Physical Therapy [PT Evaluation and Treatment] [CONS] Routine 07/29/16 14:00 Consult to Supplier Manager [Consult to Diabetic Nurse Specialist] [CONS] Routine 07/30/16 13:00 Consult to Occupational Therapy [OT Evaluation and Treatment] [CONS] Routine Labs Pending at D/C: None Recommended Follow-up Testing/Procedures: Follow up with Neurology for further evaluation; appt scheduled with Edelmira Reyes Planned Operative Procedure(s) after DC: None Hospital Course: As above - Patient Instructions Diet: Heart Healthy Diet, Low Sodium, Drink 8-10+ Glasses/Day Activity: As Tolerated (exercise 15-30 minutes daily) Driving: May Drive Today Showering/Bathing: May Shower Notify Provider of: Fever, Increased Pain, Nausea and/or Vomiting - Discharge Summary/Plan Comment DC Time >30 min.: Yes (40 min) - General Info Date of Service: 07/30/16 Admission Dx/Problem (Free Text: Admission Diagnosis/Problem Admission Diagnosis/Problem TIA, Transient ischemic attack Functional Status: Reports: pain controlled, tolerating diet, ambulating, urinating, new symptoms - Review of Systems General: Reports: no symptoms HEENT: Reports: no symptoms Pulmonary: Reports: no symptoms Cardiovascular: Reports: no symptoms Gastrointestinal: Reports: No symptoms Genitourinary: Reports: no symptoms Musculoskeletal: Reports: no symptoms Skin: Reports: no symptoms Neurological: Reports: no symptoms Psychiatric: Reports: no symptoms - Patient Data Vitals - Most Recent: Last Vital Signs Temp 98.7 F 07/30/16 08:23 Pulse 77 07/30/16 08:23 Resp 20 07/30/16 08:23 BP 155/82 H 07/30/16 08:23 Pulse Ox 95 07/30/16 08:23 Weight - Most Recent: 278 lb 1 oz I&O - Last 24 hours: Intake & Output 07/29/16 07/30/16 07/30/16 22:59 06:59 14:59 Intake Total 800 400 320 Output Total 4600 Balance -3800 400 320 Lab Results - Last 24 hrs: Laboratory Results - last 24 hr 07/29/16 07/29/16 07/29/16 Range/Units 12:27 16:48 21:09 WBC (4.23-9.07) K/mm3 RBC (4.63-6.08) M/mm3 Hgb (13.7-17.5) gm/L Hct (40.1-51.0) % MCV (79.0-92.2) fl MCH (25.7-32.2) pg MCHC (32.2-35.5) g/dl RDW Std Deviation (35.1-43.9) fL Plt Count (163-337) K/mm3 MPV (9.4-12.3) fl Neut % (Auto) (34.0-67.9) % Lymph % (Auto) (21.8-53.1) % Harney % (Auto) (5.3-12.2) % Eos % (Auto) (0.8-7.0) Baso % (Auto) (0.1-1.2) % Neut # (1.78-5.38) K/mm3 Lymph # (1.32-3.57) K/mm3 Harney # (0.30-0.82) K/mm3 Eos # (0.04-0.54) K/mm3 Baso # (0.01-0.08) K/mm3 Manual Slide Review ESR (0-15) mm/hr Sodium (136-145) mEq/L Potassium (3.5-5.1) mEq/L Chloride (98-107) mEq/L Carbon Dioxide (21-32) mEq/L Anion Gap (5-15) BUN (7-18) mg/dL Creatinine (0.7-1.3) mg/dL Est Cr Clr Drug Dosing mL/min Estimated GFR (MDRD) (>60) mL/min BUN/Creatinine Ratio (14-18) Glucose (74-106) mg/dL POC Glucose 210 H 159 H 241 H (70-105) mg/dL Calcium (8.5-10.1) mg/dL 07/30/16 07/30/16 07/30/16 Range/Units 06:26 06:50 06:50 WBC 7.50 (4.23-9.07) K/mm3 RBC 5.02 (4.63-6.08) M/mm3 Hgb 15.9 (13.7-17.5) gm/L Hct 47.3 (40.1-51.0) % MCV 94.2 H (79.0-92.2) fl MCH 31.7 (25.7-32.2) pg MCHC 33.6 (32.2-35.5) g/dl RDW Std Deviation 50.1 H (35.1-43.9) fL Plt Count 219 (163-337) K/mm3 MPV 9.9 (9.4-12.3) fl Neut % (Auto) 85.1 H (34.0-67.9) % Lymph % (Auto) 12.9 L (21.8-53.1) % Harney % (Auto) 1.5 L (5.3-12.2) % Eos % (Auto) 0 L (0.8-7.0) Baso % (Auto) 0.1 (0.1-1.2) % Neut # 6.38 H (1.78-5.38) K/mm3 Lymph # 0.97 L (1.32-3.57) K/mm3 Harney # 0.11 L (0.30-0.82) K/mm3 Eos # 0.00 L (0.04-0.54) K/mm3 Baso # 0.01 (0.01-0.08) K/mm3 Manual Slide Review Abnormal smear ESR (0-15) mm/hr Sodium 133 L (136-145) mEq/L Potassium 4.7 (3.5-5.1) mEq/L Chloride 99 (98-107) mEq/L Carbon Dioxide 23 (21-32) mEq/L Anion Gap 15.7 H (5-15) BUN 17 (7-18) mg/dL Creatinine 1.2 (0.7-1.3) mg/dL Est Cr Clr Drug Dosing 69.72 mL/min Estimated GFR (MDRD) > 60 (>60) mL/min BUN/Creatinine Ratio 14.2 (14-18) Glucose 296 H (74-106) mg/dL POC Glucose 300 H (70-105) mg/dL Calcium 8.9 (8.5-10.1) mg/dL 07/30/16 07/30/16 Range/Units 06:50 11:05 WBC (4.23-9.07) K/mm3 RBC (4.63-6.08) M/mm3 Hgb (13.7-17.5) gm/L Hct (40.1-51.0) % MCV (79.0-92.2) fl MCH (25.7-32.2) pg MCHC (32.2-35.5) g/dl RDW Std Deviation (35.1-43.9) fL Plt Count (163-337) K/mm3 MPV (9.4-12.3) fl Neut % (Auto) (34.0-67.9) % Lymph % (Auto) (21.8-53.1) % [place] % (Auto) (5.3-12.2) % Eos % (Auto) (0.8-7.0) Baso % (Auto) (0.1-1.2) % Neut # (1.78-5.38) K/mm3 Lymph # (1.32-3.57) K/mm3 Harney # (0.30-0.82) K/mm3 Eos # (0.04-0.54) K/mm3 Baso # (0.01-0.08) K/mm3 Manual Slide Review ESR 14 (0-15) mm/hr Sodium (136-145) mEq/L Potassium (3.5-5.1) mEq/L Chloride (98-107) mEq/L Carbon Dioxide (21-32) mEq/L Anion Gap (5-15) BUN (7-18) mg/dL Creatinine (0.7-1.3) mg/dL Est Cr Clr Drug Dosing mL/min Estimated GFR (MDRD) (>60) mL/min BUN/Creatinine Ratio (14-18) Glucose (74-106) mg/dL POC Glucose 274 H (70-105) mg/dL Calcium (8.5-10.1) mg/dL Med Orders - Current: Current Medications Acetaminophen (Tylenol) 650 mg PO Q4H PRN PRN Reason: Pain/Fever Last Admin: 07/29/16 13:50 Dose: 650 mg Albuterol (Proventil Hfa) 0 gm INH Q4H PRN PRN Reason: Shortness of Breath Aspirin (Halfprin) 81 mg PO DAILY [facility] Last Admin: 07/30/16 08:05 Dose: 81 mg Enoxaparin Sodium (Lovenox) 40 mg SUBCUT DAILY [facility] Last Admin: 07/30/16 08:05 Dose: 40 mg Fluticasone Propionate (Flovent Hfa 110 Mcg) 0 gm INH BID PRN PRN Reason: Shortness of Breath Gabapentin (Neurontin) 900 mg PO DAILY [facility] Last Admin: 07/30/16 08:05 Dose: 900 mg Insulin Aspart (Novolog) 0 unit SUBCUT QIDACANDBED [facility] PRN Reason: Protocol Last Admin: 07/30/16 08:05 Dose: 4 units Lisinopril (Prinivil) 10 mg PO DAILY [facility] Last Admin: 07/30/16 08:05 Dose: 10 mg Methylprednisolone Sodium Succinate (Solu-Medrol) 80 mg IVPUSH Q8H [facility] Last Admin: 07/30/16 11:06 Dose: 80 mg Sodium Chloride (Saline Flush) 10 ml FLUSH ASDIRECTED PRN PRN Reason: Keep Vein Open Last Admin: 07/29/16 12:17 Dose: 10 ml Triamcinolone Acetonide (Triamcinolone Acetonide 0.1% Crm) 0 gm TOP BID [facility] Last Admin: 07/30/16 08:06 Dose: Not Given Zolpidem Tartrate (Ambien) 10 mg PO BEDTIME [facility] Last Admin: 07/29/16 21:03 Dose: 10 mg Discontinued Medications Aspirin (Aspirin) 324 mg PO ONETIME ONE Stop: 07/28/16 17:49 Last Admin: 07/28/16 17:53 Dose: 324 mg Diazepam (Valium.) 5 mg PO ONETIME ONE Stop: 07/29/16 07:56 Last Admin: 07/29/16 08:01 Dose: 5 mg Diphtheria/Tetanus/Acell Pertussis (Boostrix) 0.5 ml IM .ONCE ONE Stop: 07/29/16 09:28 Gadobenate Dimeglumine (Multihance) 20 ml IVPUSH ONETIME ONE Stop: 07/29/16 11:41 Last Admin: 07/29/16 12:17 Dose: 20 ml Pneumococcal Polyvalent Vaccine (Pneumovax 23) 0.5 ml IM .ONCE ONE Stop: 07/28/16 20:04 Pneumococcal Polyvalent Vaccine (Pneumovax 23) 0.5 ml IM .ONCE ONE Stop: 07/29/16 09:28 - Exam Quality Assessment: Reports: DVT prophylaxis General: Reports: alert, oriented, cooperative, no acute distress HEENT: Reports: Pupils equal, Pupils reactive, EOMI, Mucous membr. moist/pink Neck: Reports: supple Lungs: Reports: Clear to auscultation, Normal respiratory effort Cardiovascular: Reports: regular rate, regular rhythm Abdomen: Reports: bowel sounds present, soft, no tenderness, no distension (Male) Exam: Deferred Rectal (Males) Exam: Deferred Back Exam: Reports: normal inspection Extremities: Reports: no edema Skin: Reports: warm, dry, intact Neurological: Reports: no new focal deficit Psy/Mental Status: Reports: alert, normal affect, normal mood *Q Meaningful Use (DIS) - VTE *Q VTE Criteria *Q: - Stroke *Q Stroke Criteria *Q: - AMI *Q AMI Criteria *Q:
== END 2016-07-30 12:45 | disposition home or self-care (01) | DRG 47 ==
LOC: JD.ED 16:12 → JD.MS 17:59
PROVIDERS: ADMIT Internal Medicine Cardiovascular Disease; ATTEND Internal Medicine Cardiovascular Disease
DX: G45.9 Transient cerebral ischemic attack, unspecified (principal); R07.9 Chest pain, unspecified; J44.9 Chronic obstructive pulmonary disease, unspecified; J45.909 Unspecified asthma, uncomplicated; K21.9 Gastro-esophageal reflux disease without esophagitis; K59.00 Constipation, unspecified; E11.40 Type 2 diabetes mellitus with diabetic neuropathy, unspecified; Z79.84 Long term (current) use of oral hypoglycemic drugs; E55.9 Vitamin D deficiency, unspecified; Z87.891 Personal history of nicotine dependence; Z79.899 Other long term (current) drug therapy; I10 Essential (primary) hypertension; R20.0 Anesthesia of skin; E66.9 Obesity, unspecified; F41.9 Anxiety disorder, unspecified
CPT/HCPCS: 36415; 70450; 70450-26; 70553; 70553-26; 71010; 71010-26; 80048; 80053; 80061; 82607; 82747; 82962; 83036; 84443; 84484; 85025; 85379; 85652; 86038; 86140; 90715; 93005; 93306; 93880; 93880-26; 97161-GP; 97165-GO; 99285; 99285-25; A9270-GY; A9577; J1650; J1815-GY; J2920; J7050

== ENCOUNTER 2016-10-14 07:25 | Day surgery (SDC) | payer BC ==
[~2016-10-14 07:25] MED LIST: Lactated Ringers 1,000 ML IV SCH; Lidocaine 1%/Sod Bicarbonate in NS 8.4% 1 ML Syringe IV PRN; Sodium Chloride 0.9% 10 ML Syringe FLUSH PRN
[2016-10-14] MEDS ORDERED: Propofol 200 MG/20 ML SDV ONE ×2 (07:33→08:59)
[2016-10-14] MEDS ORDERED: fentaNYL 250 MCG/5 ML SDV ONE (07:33)
[2016-10-14] MEDS ORDERED: Midazolam 1 MG/ML 2 ML SDV ONE (07:33)
--- NOTE | 2016-10-14 07:45 | PCM.PREANE ---
Preanesthetic Assessment - Anesthesia/Transfusion/Family Hx Anesthesia History: Prior Anesthesia Without Reaction Family History of Anesthesia Reaction: No Transfusion History: No Prior Transfusion(s) - Review of Systems General: No Symptoms Pulmonary: Shortness of Breath (on occasion), Other (copd, smoker) Cardiovascular: No Symptoms, Other (HTN) Gastrointestinal: Other (heartburn, reflux, takes meds) Neurological: Tingling (tingling in hands for years), Other (stroke like symptoms 2 months ago, work up negative) Other: Reports: Diabetes, Anxiety - Physical Assessment NPO Status Date: 10/13/16 NPO Status Time: 19:00 Pulse: 79 O2 Sat by Pulse Oximetry: 95 Respiratory Rate: 16 Blood Pressure: 148/66 Height: 1.8 m Weight: 126.127 kg ASA Class: 3 Mental Status: Alert & Oriented x3 Airway Class: Mallampati = 3 Dentition: Reports: Normal Dentition Thyro-Mental Finger Breadths: 3 Mouth Opening Finger Breadths: 3 ROM/Head Extension: Limited/Partial Lungs: Clear to auscultation, Normal respiratory effort Cardiovascular: Regular Rate, Regular Rhythm - Allergies Allergies/Adverse Reactions: Allergies Allergy/AdvReac Type Severity Reaction Status Date / Time No Known Allergies Allergy Verified 10/11/16 10:27 - Blood Blood Available: No Product(s) Available: None - Anesthesia Plan Pre-Op Medication Ordered: None - Acknowledgements Anesthesia Type Planned: MAC Pt an Appropriate Candidate for the Planned Anesthesia: Yes Alternatives and Risks of Anesthesia Discussed w Pt/Guardian: Yes Pt/Guardian Understands and Agrees with Anesthesia Plan: Yes PreAnesthesia Questionnaire HEENT History: Reports: Other (See Below) Other HEENT History: strep throat, wears glasses Respiratory History: Reports: Asthma, Bronchitis, Recurrent, COPD, Other (See Below) Other Respiratory History: cough, emyphysema, URI Gastrointestinal History: Reports: Chronic Constipation, GERD, Other (See Below) Other Gastrointestinal History: rectal bleeding Genitourinary History: Reports: Other (See Below) Other Genitourinary History: anorgasminsa, ED, low testosterone, hesitency, L orchiectomy Musculoskeletal History: Reports: Other (See Below) Other Musculoskeletal History: plantar fasciitis, neck surgery Neurological History: Reports: Neuropathy, Peripheral Psychiatric History: Reports: Anxiety, Other (See Below) Other Psychiatric History: fatigue, insomnia Endocrine/Metabolic History: Reports: Diabetes, Type II, Obesity/BMI 30+, Vitamin D Deficiency Oncologic (Cancer) History: Reports: Other (See Below) 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 Dermatologic History: Reports: Eczema, Other (See Below) Other Dermatologic History: skin tags, onychomycisis, rask tinea pedis, eczema - Past Surgical History GI Surgical History: Reports: Colonoscopy Endocrine Surgical History: Reports: None Neurological Surgical History: Reports: None - SUBSTANCE USE Smoking Status *Q: Former Smoker Tobacco Use Within Last Twelve Months: Cigarettes Second Hand Smoke Exposure: No Days Per Week of Alcohol Use: 2 Number of Drinks Per Day: 0 Total Drinks Per Week: 0 Recreational Drug Use History: No - HOME MEDS Home Medications: Home Meds Albuterol [Proair HFA] 2 puff INH Q4HR PRN 04/04/16 [History] Fluticasone Propionate [Flovent HFA 110 MCG] 2 puff INH BID 04/04/16 [History] Lisinopril 10 mg PO DAILY 04/04/16 [History] Pioglitazone HCl 45 mg PO DAILY PRN 04/04/16 [History] Sildenafil [Viagra] 1 dose PO ASDIRECTED 04/04/16 [History] Zolpidem [Ambien] 10 mg PO BEDTIME 04/04/16 [History] glipiZIDE [Glipizide Xl] 10 mg PO BID 04/04/16 [History] Gabapentin [Neurontin] 600 mg PO BID 04/05/16 [History] Aspirin [Halfprin] 81 mg PO DAILY #30 tab.ec 07/30/16 [Rx] Simvastatin [Zocor] 10 mg PO BEDTIME #10 tablet 07/30/16 [Rx] Budesonide [Pulmicort] 1 dose INH BID 10/11/16 [History] Cholecalciferol (Vitamin D3) [Vitamin D3] 5,000 unit PO DAILY 10/11/16 [History] Lansoprazole [Prevacid] 30 mg PO DAILY 10/11/16 [History] Liraglutide [Victoza] 1.2 mg SUBCUT DAILY 10/11/16 [History] Testosterone Cypionate 400 mg IM ASDIRECTED 10/11/16 [History] Venlafaxine [Effexor XR] 150 mg PO DAILY 10/11/16 [History] - CURRENT (IN HOUSE) MEDS Current Meds: Current Medications Lactated Ringer's (Ringers, Lactated) 1,000 mls @ 125 mls/hr IV ASDIRECTED BRIONNA Lidocaine/Sodium Bicarbonate (Buffered Lidocaine 1% In Ns 8.4%) 0.25 ml IV ONETIME PRN PRN Reason: Prior to IV Start Sodium Chloride (Saline Flush) 10 ml FLUSH ASDIRECTED PRN PRN Reason: Keep Vein Open Discontinued Medications Fentanyl (Sublimaze) Confirm Administered Dose 250 mcg .ROUTE .STK-MED ONE Stop: 10/14/16 07:34 Midazolam HCl (Versed 1 Mg/Ml) Confirm Administered Dose 2 mg .ROUTE .STK-MED ONE Stop: 10/14/16 07:34 Propofol (Diprivan 20 Ml) Confirm Administered Dose 200 mg .ROUTE .STK-MED ONE Stop: 10/14/16 07:34
[2016-10-14] MEDS ORDERED: Lidocaine 1% with EPINEPHrine 1:100,000 20 ML MDV ONE (08:07)
[2016-10-14] MEDS ORDERED: Bupivacaine 0.5%/EPINEPHrine 1:200,000 50 ML MDV ONE (08:08)
--- NOTE | 2016-10-14 09:09 | PCM.OPNOTE ---
- General Post-Op/Procedure Note Date of Surgery/Procedure: 10/14/16 Operative Procedure(s): excision of a large anal tag/condylomata Findings: 2 cm anal tag/condylomata Pre Op Diagnosis: large anal tag Post-Op Diagnosis: same Anesthesia Technique: Local, MAC, Moderate sedation Primary Surgeon: Audi Gutierrez Pathology: 2 cm anal tag EBL in mLs: 0 Complications: None Condition: Good Free Text/Narrative:: After adequate IV sedation and analgesia was obtained the patient was placed in the left lateral decubitus position. The perianal region was prepped with Betadine and draped sterilely. Local analgesia was infiltrated into the base of the large tag, which was about 2 cm in length with the base being about a centimeter and half. I took the electrocautery and amputated the lesion and cauterized the base. Lidocaine ointment was placed in the area. Hemostasis was obtained with cautery as necessary. A 4 x 4 gauze dressing was placed within the intergluteal fold for the dressing. There were no complications.
--- NOTE | 2016-10-14 09:10 | PCM48HPAN ---
Post Anesthesia Note - EVALUATION WITHIN 48HRS OF ANESTHETIC Vital Signs in Normal Range: Yes Patient Participated in Evaluation: Yes Respiratory Function Stable: Yes Airway Patent: Yes Cardiovascular Function Stable: Yes Hydration Status Stable: Yes Pain Control Satisfactory: Yes Nausea and Vomiting Control Satisfactory: Yes Mental Status Recovered: Yes
[2016-10-14 09:47] VITALS: BP 146/62
== END 2016-10-14 09:45 | disposition home or self-care (01) ==
LOC: JD.SDS 07:25
PROVIDERS: ATTEND Surgery
DX: A63.0 Anogenital (venereal) warts (principal); E11.9 Type 2 diabetes mellitus without complications; J43.9 Emphysema, unspecified; K21.9 Gastro-esophageal reflux disease without esophagitis; E29.1 Testicular hypofunction; E55.9 Vitamin D deficiency, unspecified; Z79.82 Long term (current) use of aspirin; Z79.899 Other long term (current) drug therapy; Z98.890 Other specified postprocedural states; F17.210 Nicotine dependence, cigarettes, uncomplicated; Z72.0 Tobacco use
CPT/HCPCS: 46924; 82962; 88305; A9270; J2250; J3010; J7120; 00902; J2704

== ENCOUNTER 2018-07-11 10:17 | Emergency (ER) | payer BC ==
--- NOTE | 2018-07-11 11:04 | EDM.PDOC ---
ED HPI GENERAL MEDICAL PROBLEM - General Chief Complaint: Abdominal Pain Stated Complaint: ABDOMINAL PAIN - POST SURGERY Time Seen by Provider: 07/11/18 11:03 Source of Information: Reports: Patient History Limitations: Reports: No Limitations - History of Present Illness INITIAL COMMENTS - FREE TEXT/NARRATIVE: 62-year-old male presents to the ED due to diffuse severe upper abdominal pain associated with nausea but no vomiting. Patient has had problems with development of jaundice and occluded biliary tree secondary to presumably cholelithiasis. He's had his gallbladder removed and then Dr. Morataya did an ERCP on him in [place] and open up his common bile duct and placed a stent. CT or MRI suggested the problem around the gallbladder pancreatic head and the concern was that he may have an underlying pancreatic cancer. He was thus sent to the [facility] where he had an open laparotomy but was closed. The plan was a proposed Whipple's procedure if it needed to be done. He was closed up because of active infection he was told in the area. Subsequent to this he's felt improved after having his stent removed. He was to [place] on Friday this last week for a second opinion about his abnormal findings on MRI about a possible second Whipple's procedure attempt. He had an upper GI endoscopy and biopsies taken. He states he did fine on Friday but on Friday he started to develop upper abdominal pain and his last meal was with his brother in [place] on the way home. Since then he's been unable to eat with terrible diffuse upper abdominal pain not rating into his back. He's had no bowel movement since the upper GI endoscopy was performed. He's been taking Ex- Lax and many other stool softeners with no bowel movement. He feels distended and bloated. Pain is constant with a mild colicky component. Patient has been taking oxycodone tablets that he had left over from his surgery for pain relief but only has a couple left and believes they may have caused some constipation. Onset: Gradual Onset Date: 07/08/18 Duration: Day(s):, Constant, Getting Worse Location: Reports: Abdomen (Across his entire upper abdomen epigastrium right upper quadrant and left upper quadrant but not rating into his back.) Quality: Reports: Ache, Other Severity: Severe (Deep constant aching pain associated with nausea but no vomiting. He's tried to make himself vomit but was unsuccessful 9 out of 10.) Improves with: Reports: None Worsens with: Reports: Other Context: Reports: Other (Problem started after upper GI endoscopy done in [place] on July 07.). Denies: Activity, Exercise, Lifting, Sick Contact ( Drinking makes it worse.), Trauma Associated Symptoms: Reports: Chest Pain, Loss of Appetite, Malaise, Nausea/ Vomiting, Shortness of Breath, Weakness. 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) (He has been to using Percocet tablets when necessary for pain relief at home.) Middle Abdominal Pain Score (Numeric/FACES): 8 - Related Data Allergies Allergy/AdvReac Type Severity Reaction Status Date / Time venlafaxine [From Effexor] Allergy Cannot Verified 07/11/18 10:25 Remember Home Meds: Home Meds Albuterol [Proair HFA] 2 puff INH Q4HR PRN 04/04/16 [History] Fluticasone Propionate [Flovent HFA 110 MCG] 2 puff INH BID 04/04/16 [History] Lisinopril 10 mg PO DAILY 04/04/16 [History] Pioglitazone HCl 45 mg PO DAILY 04/04/16 [History] Zolpidem [Ambien] 10 mg PO BEDTIME 04/04/16 [History] glipiZIDE [Glipizide Xl] 10 mg PO BID 04/04/16 [History] Aspirin [Halfprin] 81 mg PO DAILY #30 tab.ec 07/30/16 [Rx] Simvastatin [Zocor] 10 mg PO BEDTIME #10 tablet 07/30/16 [Rx] Cholecalciferol (Vitamin D3) [Vitamin D3] 3,000 unit PO DAILY 10/11/16 [History] Lansoprazole [Prevacid] 30 mg PO DAILY 10/11/16 [History] Liraglutide [Victoza] 1.2 mg SUBCUT DAILY 10/11/16 [History] Ciprofloxacin HCl [Cipro] 500 mg PO BID #20 tablet 07/11/18 [Rx] Ondansetron [Zofran ODT] 4 mg PO Q4H PRN #12 tab.dis 07/11/18 [Rx] oxyCODONE HCl/Acetaminophen [Percocet 10-325 mg Tablet] 1 - 2 each PO Q4H PRN # 30 tablet 07/11/18 [Rx] Past Medical History HEENT History: Reports: Cataract, Other (See Below) Other HEENT History: strep throat, wears glasses Respiratory History: Reports: Asthma, Bronchitis, Recurrent, COPD, Other (See Below) Other Respiratory History: cough, emyphysema, URI Gastrointestinal History: Reports: GERD, Other (See Below) Other Gastrointestinal History: rectal bleeding Genitourinary History: Reports: Other (See Below) Other Genitourinary History: anorgasminsa, ED, low testosterone, hesitency, L orchiectomy Musculoskeletal History: Reports: Fracture, Other (See Below) Other Musculoskeletal History: plantar fasciitis, neck surgery Neurological History: Reports: Neuropathy, Peripheral Psychiatric History: Reports: Anxiety, Other (See Below) Other Psychiatric History: fatigue, insomnia Endocrine/Metabolic History: Reports: Diabetes, Type II, Obesity/BMI 30+, Vitamin D Deficiency Oncologic (Cancer) History: Reports: Other (See Below) 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 Dermatologic History: Reports: Other (See Below) Other Dermatologic History: skin tags, onychomycisis, rask tinea pedis, eczema - Infectious Disease History Infectious Disease History: Reports: Chicken Pox, Measles, Mumps - Past Surgical History HEENT Surgical History: Reports: Cataract Surgery GI Surgical History: Reports: Colonoscopy Endocrine Surgical History: Reports: None Neurological Surgical History: Reports: None Social & Family History - Family History Family Medical History: Noncontributory - Tobacco Use Smoking Status *Q: Current Some Day Smoker Years of Tobacco use: 45 Packs/Tins Daily: 0.2 - Caffeine Use Caffeine Use: Reports: Coffee Other Caffeine Use: 2 cups coffee daily - Alcohol Use Days Per Week of Alcohol Use: 2 Number of Drinks Per Day: 2 Total Drinks Per Week: 4 - Recreational Drug Use Recreational Drug Use: No - Living Situation & Occupation Living situation: Reports: Occupation: Employed [employer] - Review of Systems Review Of Systems: 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 He had to turn the heater on in the car), Fatigue, Decreased Appetite (Unable to eat at all.). Denies: Fever HEENT: Reports: No Symptoms Respiratory: Reports: Shortness of Breath. Denies: Cough (Objective shortness of breath as it makes his abdominal pain worse if he tries to take a deep breath.) Cardiovascular: Reports: Blood Pressure Problem, Dyspnea on Exertion. Denies: Chest Pain, Claudication, Edema, Lightheadedness, Orthopnea Endocrine: Reports: Fatigue, High Glucose (Has type 2 diabetes.) GI/Abdominal: Reports: Abdominal Pain, Constipation (See history of present illness), Decreased Appetite (Unable to eat at all), Nausea, Vomiting. Denies: Diarrhea : Reports: Frequency, Other (Nocturia 2.) Musculoskeletal: Reports: Back Pain, Joint Pain (Knees and hips at times) Skin: Reports: No Symptoms Neurological: Reports: No Symptoms Psychiatric: Reports: No Symptoms Hematologic/Lymphatic: Reports: No Symptoms Immunologic: Reports: No Symptoms ED EXAM, GI/ABD - Physical Exam Exam: See Below Exam Limited By: No Limitations General Appearance: Alert, WD/WN, Moderate Distress (He is in obvious discomfort.) Eyes: Right: Normal Appearance Ears: Normal External Exam Nose: Normal Inspection Throat/Mouth: Other (Tongue is mildly dry and coated.) Neck: Normal Inspection, Supple, Non-Tender, Full Range of Motion. No: Lymphadenopathy (L), Lymphadenopathy (R) Respiratory/Chest: No Respiratory Distress, Lungs Clear, No Accessory Muscle Use , Respiratory Distress, Decreased Breath Sounds (Breath sounds are diminished to the lower 25% of lung acevedo bilaterally.) Cardiovascular: Normal Peripheral Pulses, Regular Rate, Rhythm, No Gallop, No Murmur, No Rub. No: No Edema GI/Abdominal Exam: Distended (Distended but not tympanitic to percussion.), Guarding ( Patient is tender to percussion right upper quadrant abdomen. He is tender to palpation across both upper epigastrium and right upper quadrant of the abdomen with guarding.), Tender (Bowel sounds are slightly hyperactive in all 4 quadrants.), Abnormal Bowel Sounds, Other (He has a healing midline laparotomy wound from epigastrium to the pubic symphysis.). No: Rigid, Rebound (Male) Exam: No Hernia Back Exam: Normal Inspection, Full Range of Motion. No: CVA Tenderness (L), CVA Tenderness (R) Extremities: Normal Inspection, Normal Range of Motion, Non-Tender, Pedal Edema Neurological: Alert, Oriented (This edema around his ankles), CN II-XII Intact, Normal Cognition Psychiatric: Normal Affect, Normal Mood, Other Skin Exam: Warm, Dry (Obvious pain and discomfort), Intact, Normal Color, No Rash Course - Vital Signs Last Recorded V/S: Last Vital Signs Temp 36.4 C 07/11/18 10:20 Pulse 80 07/11/18 10:20 Resp 28 H 07/11/18 10:20 BP 166/82 H 07/11/18 10:20 Pulse Ox 92 L 07/11/18 10:20 - Orders/Labs/Meds Orders: Active Orders 24 hr Category Date Time Status AMYLASE [CHEM] Stat Lab 07/11/18 11:43 Received CULTURE BLOOD [BC] Stat Lab 07/11/18 11:43 Received CULTURE BLOOD [BC] Stat Lab 07/11/18 11:49 Received Dextrose 5%-0.9% NaCl [Dextrose 5%-Normal Saline] 1,000 Med 07/11/18 11:15 Active ml IV ASDIRECTED Blood Culture x2 Reflex Set [OM.PC] Stat Oth 07/11/18 11:16 Ordered Medication Orders Dextrose/Sodium Chloride (Dextrose 5%-Normal Saline) 1,000 mls @ 999 mls/hr IV ASDIRECTED BRIONNA Last Admin: 07/11/18 11:29 Dose: 999 mls/hr Labs: Laboratory Tests 07/11/18 07/11/18 07/11/18 Range/Units 11:43 11:43 11:43 WBC 14.43 H (4.23-9.07) K/mm3 RBC 4.58 L (4.63-6.08) M/mm3 Hgb 13.5 L (13.7-17.5) gm/L Hct 40.2 (40.1-51.0) % MCV 87.8 (79.0-92.2) fl MCH 29.5 (25.7-32.2) pg MCHC 33.6 (32.2-35.5) g/dl RDW Std Deviation 55.1 H (35.1-43.9) fL Plt Count 273 (163-337) K/mm3 MPV 10.2 (9.4-12.3) fl Neutrophils % (Manual) 79 H (40-60) % Band Neutrophils % 1 (0-10) % Lymphocytes % (Manual) 10 L (20-40) % Atypical Lymphs % 0 % Monocytes % (Manual) 8 (2-10) % Eosinophils % (Manual) 2 (0.8-7.0) % Basophils % (Manual) 0 L (0.2-1.2) Platelet Estimate Adequate RBC Morph Comment Normal ESR (0-15) mm/hr PT 11.3 (9.5-12.1) SECONDS INR 1.04 APTT 29 (24-31) SECONDS Sodium 133 L (136-145) mEq/L Potassium 3.5 (3.5-5.1) mEq/L Chloride 96 L (98-107) mEq/L Carbon Dioxide 28 (21-32) mEq/L Anion Gap 12.5 (5-15) BUN 27 H (7-18) mg/dL Creatinine 1.2 (0.7-1.3) mg/dL Est Cr Clr Drug Dosing 65.90 mL/min Estimated GFR (MDRD) > 60 (>60) mL/min BUN/Creatinine Ratio 22.5 H (14-18) Glucose 232 H (80-115) mg/dL Lactic Acid (0.4-2.0) mmol/L Calcium 8.9 (8.5-10.1) mg/dL Magnesium 1.3 L (1.8-2.4) mg/dl Total Bilirubin 0.8 (0.2-1.0) mg/dL AST 11 L (15-37) U/L ALT 63 (16-63) U/L Alkaline Phosphatase 161 H (46-116) U/L Troponin I < 0.017 (0.00-0.056) ng/mL NT-Pro-B Natriuret Pep (0-125) pg/mL Total Protein 7.2 (6.4-8.2) g/dl Albumin 2.6 L (3.4-5.0) g/dl Globulin 4.6 gm/dL Albumin/Globulin Ratio 0.6 L (1-2) Lipase 65 L (73-393) U/L 07/11/18 07/11/18 07/11/18 Range/Units 11:43 11:43 11:43 WBC (4.23-9.07) K/mm3 RBC (4.63-6.08) M/mm3 Hgb (13.7-17.5) gm/L Hct (40.1-51.0) % MCV (79.0-92.2) fl MCH (25.7-32.2) pg MCHC (32.2-35.5) g/dl RDW Std Deviation (35.1-43.9) fL Plt Count (163-337) K/mm3 MPV (9.4-12.3) fl Neutrophils % (Manual) (40-60) % Band Neutrophils % (0-10) % Lymphocytes % (Manual) (20-40) % Atypical Lymphs % % Monocytes % (Manual) (2-10) % Eosinophils % (Manual) (0.8-7.0) % Basophils % (Manual) (0.2-1.2) Platelet Estimate RBC Morph Comment ESR 90 H (0-15) mm/hr PT (9.5-12.1) SECONDS INR APTT (24-31) SECONDS Sodium (136-145) mEq/L Potassium (3.5-5.1) mEq/L Chloride (98-107) mEq/L Carbon Dioxide (21-32) mEq/L Anion Gap (5-15) BUN (7-18) mg/dL Creatinine (0.7-1.3) mg/dL Est Cr Clr Drug Dosing mL/min Estimated GFR (MDRD) (>60) mL/min BUN/Creatinine Ratio (14-18) Glucose (80-115) mg/dL Lactic Acid 1.3 (0.4-2.0) mmol/L Calcium (8.5-10.1) mg/dL Magnesium (1.8-2.4) mg/dl Total Bilirubin (0.2-1.0) mg/dL AST (15-37) U/L ALT (16-63) U/L Alkaline Phosphatase (46-116) U/L Troponin I (0.00-0.056) ng/mL NT-Pro-B Natriuret Pep 1485 H (0-125) pg/mL Total Protein (6.4-8.2) g/dl Albumin (3.4-5.0) g/dl Globulin gm/dL Albumin/Globulin Ratio (1-2) Lipase (73-393) U/L Meds: Medications Generic Name Dose Route Start Last Admin Trade Name Garima PRN Reason Stop Dose Admin Dextrose/Sodium Chloride 1,000 mls @ 999 mls/hr 07/11/18 11:15 07/11/18 11:29 Dextrose 5%-Normal Saline IV 999 mls/hr ASDIRECTED BRIONNA Administration Discontinued Medications Generic Name Dose Route Start Last Admin Trade Name Garima PRN Reason Stop Dose Admin Hydromorphone HCl 1 mg 07/11/18 11:15 07/11/18 11:25 Dilaudid IVPUSH 07/11/18 11:16 1 mg ONETIME ONE Administration Hydromorphone HCl 1 mg 07/11/18 14:31 07/11/18 14:49 Dilaudid IVPUSH 07/11/18 14:32 1 mg ONETIME ONE Administration Iopamidol 100 ml 07/11/18 13:34 07/11/18 14:01 Isovue-300 (61%) IVPUSH 07/11/18 13:35 100 ml ONETIME ONE Administration Metoclopramide HCl 10 mg 07/11/18 11:15 07/11/18 11:27 Reglan IVPUSH 07/11/18 11:16 10 mg ONETIME ONE Administration - Radiology Interpretation Free Text/Narrative:: 62-year-old male presents to the ED with diffuse upper abdominal pain post upper GI endoscopy performed in [place] on Friday. Problem started the following day with increasing pain in the epigastrium and then spreading across both upper quadrants of the abdomen. Clinically he is febrile. He appreciated some chills the day after the endoscopy was performed. He's not been able to eat at all since Friday. He is nauseated but unable to vomit. No pain radiating to his back. Pain is constant. He's also had no bowel movement since fasting for the upper GI endoscopy on Friday. He has been taking stool softeners as well as oxycodone tablets for pain relief and has not had a bowel movement since endoscopy. Exam reveals him to be very tender in the epigastrium and both upper quadrants of the abdomen. He did have some chills the day after the endoscopy was performed. Plan IV will be D5 normal saline at open. Given Dilaudid 1 mg IV and Reglan 10 mg IV for nausea and pain relief. He had will be performed with labs including a serum lipase. Will likely require CT of the abdomen. - Re-Assessments/Exams Free Text/Narrative Re-Assessment/Exam: 07/11/18 12:30 patient is feeling quite a bit better and able to take some Gatorade now. Nausea is improved. Views of the abdomen reveals slight amount of stool in the cecum. The rest of the colon appears relatively empty. There is no bowel obstruction. As reveal a normal lipase. Does have an elevated white count differential is pending. Going to proceed with CT of the abdomen with oral and IV contrast. 07/11/18 14:32 having more pain at this time. Will repeat Dilaudid [address] of the abdomen has been completed. He does have a small to moderate-sized hiatal hernia. Visualized portions of the lung bases appear clear. Cardiac border also appears normal. Liver appears to be homogeneous and normal with no intraductal dilatation. Gallbladder is absent. There is a haziness around the head of the pancreas which I can't explain. Stomach fills with contrast and empties nicely into the pylorus and upper small bowel. Both kidneys appear to be normal with no your TR obstructions. Adrenal glands appear normal as well. There is increased stool throughout the transverse colon which may be causing a good portion of this patient's pain. I'll await the radiologist's report. 07/11/18 15:00 CT of the abdomen has been performed with oral and IV contrast. Small portion of visualized lung bases show minimal scarring or atelectasis intrahepatic biliary is seen but he did have a recent cholecystectomy. Inflammatory changes noted around the head of the pancreas which is felt compatible with pancreatitis. Adrenal glands show no nodules kidneys show symmetrical contrast enhancement small cortical cyst is noted within the right kidney measuring 9 mm spleen appears to be within normal limits aorta shows atherosclerotic calcification which continues into the iliac arteries. No retroperitoneal adenopathy noted. No mesenteric abnormalities are noted appendix is seen which is normal in size no pelvic mass is identified delayed images show contrast within the distal ureters and the bladder. Bone windows reveal moderate degenerative change within the lumbar spine. 07/11/18 15:16 clinically the patient has signs and symptoms of pancreatitis. I 've ordered a serum amylase to see if is any different than the lipase. She is to try things at home. He is clinically running a low-grade fever. His white count was also mildly elevated at 14.43. Going to send him home with Percocet 10 /325 mg tabs one or 2 every 4-6 hours as needed for pain relief. MiraLAX powder 17 g daily to prevent constipation. Zofran 4 mg sublingual every 4-6 hours needed for nausea relief. I will send him home on Cipro 500 mg twice a day to be taken for 8 days if he develops fever over the next 24 hours. Return to the ED if he has continued increased pain not controlled with oral medication or continues to vomit. Diet should be clear fluids such as Gatorade /Powerade etc. Departure - Departure Time of Disposition: 15:18 Disposition: Home, Self-Care 01 Condition: Fair Clinical Impression: Abdominal pain Qualifiers: Abdominal location: epigastric Qualified Code(s): R10.13 - Epigastric pain - Discharge Information *PRESCRIPTION DRUG MONITORING PROGRAM REVIEWED*: Not Applicable *COPY OF PRESCRIPTION DRUG MONITORING REPORT IN PATIENT NOLVIA: Not Applicable Prescriptions: Ciprofloxacin HCl [Cipro] 500 mg PO BID #20 tablet Ondansetron [Zofran ODT] 4 mg PO Q4H PRN #12 tab.dis PRN Reason: Nausea/Vomiting oxyCODONE HCl/Acetaminophen [Percocet 10-325 mg Tablet] 1 - 2 each PO Q4H PRN # 30 tablet PRN Reason: pancreatitis pain Referrals: Luba Guaman [facility] [facility] [Primary Care Provider] - Forms: ED Department Discharge Additional Instructions: Evaluation the emergency room today in regards to development of generalized upper abdominal pain associated with nausea and vomiting thing upper GI endoscopy performed in [place] on Friday. The following day developed fever chills and gradually worsening abdominal pain over the last 3 days. The history is compatible with pancreatitis. However the markers were used for pink is cold serum lipase came back in the normal range. CT the abdomen was performed with oral and IV contrast and it to suggest haziness around the head of the pancreas compatible with localized pancreatitis. I still believe this is the cause of your upper abdominal pain. There was some increased stool in the upper colon that travels across the upper abdomen as well but this will clear with the oral contrast as is usually would make her bowels move twice in the next few hours. He received IV fluids while in the ED as well as Dilaudid 1 mg IV 2 and medications called Reglan for nausea relief. Labs did suggest a slightly elevated white count possibly from pain response although clinically you feel warm like he may have a low-grade fever. 90 other markers in your bloodstream suggested an infective process at this time. Treatment at home is clear fluids such as Gatorade Powerade and perhaps pasta/bread with jam etc. Stay away from fatty foods and minimal protein until the abdominal pain is better. Pain medication is Percocet 10/325 mg one or 2 tablets every 4-6 hours needed for pain relief. Zofran 4 mg under the tongue every 4-6 hours needed for relief of nausea or vomiting. Prescription written also for Cipro 500 mg twice daily for 10 days. This is only to be filled if you continue to run a fever over the next 24 hours. If you continue to have nausea vomiting or pain is not markedly improved in 36 hours time you should return to the hospital. - My Orders Last 24 Hours: My Active Orders 07/11/18 11:15 Dextrose 5%-0.9% NaCl [Dextrose 5%-Normal Saline] 1,000 ml IV ASDIRECTED 07/11/18 11:16 Blood Culture x2 Reflex Set [OM.PC] Stat 07/11/18 11:43 AMYLASE [CHEM] Stat CULTURE BLOOD [BC] Stat 07/11/18 11:49 CULTURE BLOOD [BC] Stat - Assessment/Plan Last 24 Hours: My Active Orders 07/11/18 11:15 Dextrose 5%-0.9% NaCl [Dextrose 5%-Normal Saline] 1,000 ml IV ASDIRECTED 07/11/18 11:16 Blood Culture x2 Reflex Set [OM.PC] Stat 07/11/18 11:43 AMYLASE [CHEM] Stat CULTURE BLOOD [BC] Stat 07/11/18 11:49 CULTURE BLOOD [BC] Stat
[2018-07-11] MEDS ORDERED: Dextrose 5%-0.9% NaCl 1,000 ML IV SCH (11:15)
[2018-07-11] MEDS ORDERED: Metoclopramide 10 MG/2 ML SDV IVPUSH ONE (11:15)
[2018-07-11] MEDS ORDERED: HYDROmorphone 1 MG/ML Syringe IVPUSH ONE ×2 (11:15→14:31)
[2018-07-11] MEDS ORDERED: Iopamidol 612 MG/ML 100 ML Bottle IVPUSH ONE (13:34)
--- NOTE | 2018-07-11 14:54 | CT ---
CT abdomen and pelvis Technique: Multiple axial sections were obtained from above the dome of the diaphragm inferiorly through the pubic symphysis. Intravenous contrast and oral contrast was utilized. Comparison: No prior CT abdomen or pelvis exam, previous abdominal x-ray performed earlier on the same day (11:59 AM). Findings: Small portion of visualized lung bases shows minimal scarring or atelectasis within the right lung base. Intrahepatic biliary air is seen. Prior cholecystectomy is noted. Inflammatory change is noted around the pancreas which is felt compatible with pancreatitis. Adrenal glands show no nodule. Kidneys show symmetric contrast enhancement. Small cortical cyst is noted within the right kidney measuring 9 mm. Spleen appears within normal limits. Aorta shows atherosclerotic calcification which continues into the iliac arteries. No retroperitoneal adenopathy is seen. No mesenteric abnormalities are noted. Appendix is seen which is normal in size. No pelvic mass or adenopathy is seen. Fat-containing left inguinal hernia is incidentally noted. Delayed images shows contrast within the distal ureters and within the bladder. Bone window settings were reviewed which shows scattered degenerative change within the spine. Impression: 1. Inflammatory change around the pancreas suspicious for pancreatitis. 2. Intrahepatic biliary air most likely residual from previous cholecystectomy. 3. Other incidental findings as noted above. Diagnostic code #3
--- NOTE | 2018-07-11 15:25 | CR ---
Abdomen: Supine view of the abdomen was obtained. Comparison: Previous upright abdominal x-ray of 12/23/17. Bowel gas pattern appears normal. Degenerative change is seen within the spine. Joint spaces within both hips are maintained. No abnormal calcifications or soft tissue abnormality is seen. Impression: 1. Nothing acute is appreciated. Diagnostic code #2
[2018-07-11 15:51] VITALS: BP 151/73
== END 2018-07-11 15:47 | disposition home or self-care (01) ==
LOC: JD.ED 10:17
DX: R10.13 Epigastric pain (principal); F17.210 Nicotine dependence, cigarettes, uncomplicated; Z88.8 Allergy status to other drugs, medicaments and biological substances; Z79.899 Other long term (current) drug therapy
CPT/HCPCS: 36415; 74018; 74177; 80053; 81001; 82150; 83605; 83690; 83735; 83880; 84484; 85007; 85027; 85610; 85652; 85730; 87040; 96361; 96374; 96375; 96376; 99284; J1170; J2765; J7042; Q9967

== ENCOUNTER 2019-03-17 02:45 | Emergency (ER) | payer BC ==
[2019-03-17] MEDS ORDERED: FLU Vacc QS2019-20(6MOS+)/PF 60 MCG/0.5 ML SYRINGE IM ONE (03:00)
[2019-03-17] MEDS ORDERED: Sodium Chloride 0.9% 1,000 ML IV ONE (03:33)
[2019-03-17] MEDS ORDERED: Ondansetron 4 MG/2 ML SDV IVPUSH ONE (03:33)
--- NOTE | 2019-03-17 03:39 | EDM.PDOC ---
ED HPI GENERAL MEDICAL PROBLEM - General Chief Complaint: Abdominal Pain Stated Complaint: [facility] Time Seen by Provider: 03/17/19 02:53 Source of Information: Reports: Patient History Limitations: Reports: No Limitations - History of Present Illness INITIAL COMMENTS - FREE TEXT/NARRATIVE: Mr. 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 He states that the CBD stricture causes him to have recurrent right upper quadrant pain. He states that he has undergone 5 ERCPs, and received 3 CBD stents. His most recent CBD stent was removed about one week ago, after being in place for about 6 weeks. He states that his he is being evaluated for a CBD replacement, and that his Account Manager [employer] at [facility] feels that his condition is too complex to be managed in [place]; the patient receives his care at [facility]. He states that he developed nausea around 22:30 tonight, while in bed. Shortly thereafter, he vomited, then developed epistaxis shortly after that. He is unsure which side the nose bleed was on - he thinks mainly the right, but he states that it seemed to be coming out both sides. He states that he pinched his nose and tipped his head back, and that the epistaxis stopped after about 5 minutes. He returned to bed, then had a repeat episode a short while after that , this time taking about 10 minutes for his epistaxis to resolve. He states that there appeared to be blood in his vomit the second time. Shortly after that , he developed right upper quadrant pain, the same as he has been experiencing on and off for the past year. The patient states, however, that he has not previously had issues with nausea or vomiting associated with his CBD stricture , just pain. I'm told that the patient was given 1 mg of Dilaudid and IV fluid per EMS en route, but no anti-nausea medicine. Here in the ED, the patient is found to be hemodynamically stable. His nose is not bleeding, and he denies having either nausea or abdominal pain at this time. The patient's PCP is either Luba Guaman NP or NEERAJ Cornelius at the [facility], however, due to the complexity of the patient's medical issues, they have referred the patient to Dr. Dawson Monroy. The patient has an appointment to see Dr. Monroy on 04/01/2019. His Account Manager [employer] at [facility] is Dr. Rajendra Fofana. His Surgeon at [facility] is Dr. Angel eTllo. His Infectious Disease specialist is Dr. Socorro Elliott. The patient has not received an influenza vaccine this season. Right Abdomen Pain Score (Numeric/FACES): 3 - Related Data Allergies Allergy/AdvReac Type Severity Reaction Status Date / Time venlafaxine [From Effexor] Allergy Cannot Verified 03/17/19 02:50 Remember Home Meds: Home Meds Albuterol [Proair HFA] 2 puff INH Q4HR PRN 04/04/16 [History] Fluticasone Propionate [Flovent HFA 110 MCG] 2 puff INH BID 04/04/16 [History] Lisinopril 10 mg PO DAILY 04/04/16 [History] Pioglitazone HCl 45 mg PO DAILY 04/04/16 [History] Zolpidem [Ambien] 10 mg PO BEDTIME 04/04/16 [History] glipiZIDE [Glipizide Xl] 10 mg PO BID 04/04/16 [History] Aspirin [Halfprin] 81 mg PO DAILY #30 tab.ec 07/30/16 [Rx] Simvastatin [Zocor] 10 mg PO BEDTIME #10 tablet 07/30/16 [Rx] Cholecalciferol (Vitamin D3) [Vitamin D3] 3,000 unit PO DAILY 10/11/16 [History] Lansoprazole [Prevacid] 30 mg PO DAILY 10/11/16 [History] Liraglutide [Victoza] 1.2 mg SUBCUT DAILY 10/11/16 [History] Ciprofloxacin HCl [Cipro] 500 mg PO BID #20 tablet 07/11/18 [Rx] Ondansetron [Zofran ODT] 4 mg PO Q4H PRN #12 tab.dis 07/11/18 [Rx] oxyCODONE HCl/Acetaminophen [Percocet 10-325 mg Tablet] 1 - 2 each PO Q4H PRN # 30 tablet 07/11/18 [Rx] Past Medical History HEENT History: Reports: Impaired Vision Other HEENT History: wears glasses Respiratory History: Reports: Asthma (suspected, not tested), COPD (suspected, not tested), Sleep Apnea (nightly CPAP 10) Gastrointestinal History: Reports: Colon Polyp, GERD, Other (See Below) (Benign pancreatic tumor, excised. Common bile duct stenosis.) Musculoskeletal History: Reports: Fracture (nose), Other (See Below) Neurological History: Reports: Neuropathy, Peripheral Psychiatric History: Reports: Anxiety Endocrine/Metabolic History: Reports: Diabetes, Type II, Obesity/BMI 30+, Vitamin D Deficiency Oncologic (Cancer) History: Reports: Other (See Below) (Left testicular cancer, s/p orchiectomy + RTx) Dermatologic History: Reports: Eczema - Infectious Disease History Infectious Disease History: Reports: Chicken Pox, Measles, Mumps - Past Surgical History HEENT Surgical History: Reports: Cataract Surgery GI Surgical History: Reports: Cholecystectomy (2018), Colonoscopy (x 4), EGD, ERCP (x 5, with 3 CBD stents), Other (See Below) (Whipple, incomplete) Neurological Surgical History: Reports: C-Spine (C3-C4 ACDF) Oncologic Surgical History: Reports: Other (See Below) (Left orchiectomy) Social & Family History - Family History Family Medical History: Noncontributory - Tobacco Use Smoking Status *Q: Current Every Day Smoker Years of Tobacco use: 48 Packs/Tins Daily: 0.7 Packs/Tins Daily Comment: Down from 1.5 ppd - Caffeine Use Caffeine Use: Reports: Coffee Other Caffeine Use: 2 cups coffee daily - Alcohol Use Alcohol Use History: Yes Alcohol Use Frequency: Socially - Recreational Drug Use Recreational Drug Use: Yes Drug Use in Last 12 Months: No Recreational Drug Type: Reports: Cocaine (last snorted, smoked 2008), Marijuana/ Hashish (last smoked 2008) - Living Situation & Occupation Living situation: Reports: , Alone 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 GI/Abdominal: Reports: Constipation (chronic) ED EXAM, GI/ABD - Physical Exam Exam: See Below Exam Limited By: No Limitations General Appearance: Alert, WD/WN, No Apparent Distress Eyes: Bilateral: Normal Appearance, EOMI Ears: Normal External Exam, Hearing Grossly Normal Nose: Other (Septal perforation with some dried blood primarily in the right nostril. No visible vessel.) Throat/Mouth: Normal Inspection, Normal Lips, Normal Voice, No Airway Compromise Head: Atraumatic, Normocephalic Neck: Normal Inspection, Full Range of Motion Respiratory/Chest: No Respiratory Distress, Lungs Clear, Normal Breath Sounds, No Accessory Muscle Use Cardiovascular: Normal Peripheral Pulses, Regular Rate, Rhythm, No Edema, No Gallop, No JVD, No Murmur, No Rub GI/Abdominal Exam: Normal Bowel Sounds, Soft, No Organomegaly, No Distention, No Abnormal Bruit, No Mass, Pelvis Stable, Tender (Right upper quadrant only - chronic for the patient. Nontender elsewhere. Well-healed midline abdominal surgical scar.) (Male) Exam: Deferred Rectal (Males) Exam: Deferred Back Exam: Normal Inspection, Full Range of Motion, NT Extremities: Normal Inspection, Normal Range of Motion, No Pedal Edema, Normal Capillary Refill Neurological: Alert, Oriented, Normal Cognition, No Motor/Sensory Deficits Psychiatric: Normal Affect Skin Exam: Warm, Dry, Intact, Normal Color, No Rash Course - Vital Signs Last Recorded V/S: Last Vital Signs Temp 36.3 C 03/17/19 02:46 Pulse 79 03/17/19 02:46 Resp 15 03/17/19 02:46 BP 147/89 H 03/17/19 02:46 Pulse Ox 93 L 03/17/19 02:46 - Orders/Labs/Meds Orders: Active Orders 24 hr Category Date Time Status Influenza Vaccine Charge [RC] .DISCHARGE Care 03/17/19 02:57 Active Labs: Laboratory Tests 03/17/19 03/17/19 Range/Units 03:45 03:45 WBC 8.01 (4.23-9.07) K/mm3 RBC 4.15 L (4.63-6.08) M/mm3 Hgb 13.3 L (13.7-17.5) gm/dl Hct 40.6 (40.1-51.0) % MCV 97.8 H (79.0-92.2) fl MCH 32.0 (25.7-32.2) pg MCHC 32.8 (32.2-35.5) g/dl RDW Std Deviation 56.3 H (35.1-43.9) fL Plt Count 292 (163-337) K/mm3 MPV 9.2 L (9.4-12.3) fl Neutrophils % (Manual) 68 H (40-60) % Band Neutrophils % 0 (0-10) % Lymphocytes % (Manual) 23 (20-40) % Atypical Lymphs % 0 % Monocytes % (Manual) 6 (2-10) % Eosinophils % (Manual) 3 (0.8-7.0) % Basophils % (Manual) 0 L (0.2-1.2) Platelet Estimate Adequate Plt Morphology Comment Normal RBC Morph Comment Normal Sodium 141 (136-145) mEq/L Potassium 4.6 (3.5-5.1) mEq/L Chloride 106 (98-107) mEq/L Carbon Dioxide 29 (21-32) mEq/L Anion Gap 10.6 (5-15) BUN 20 H (7-18) mg/dL Creatinine 1.1 (0.7-1.3) mg/dL Est Cr Clr Drug Dosing 70.97 mL/min Estimated GFR (MDRD) > 60 (>60) mL/min BUN/Creatinine Ratio 18.2 H (14-18) Glucose 139 H (80-115) mg/dL Calcium 8.7 (8.5-10.1) mg/dL Magnesium 1.4 L (1.8-2.4) mg/dl Total Bilirubin 0.3 (0.2-1.0) mg/dL AST 11 L (15-37) U/L ALT 21 (16-63) U/L Alkaline Phosphatase 56 (46-116) U/L Total Protein 6.5 (6.4-8.2) g/dl Albumin 3.3 L (3.4-5.0) g/dl Globulin 3.2 gm/dL Albumin/Globulin Ratio 1.0 (1-2) Lipase 144 (73-393) U/L Meds: Medications Discontinued Medications Generic Name Dose Route Start Last Admin Trade Name Freq PRN Reason Stop Dose Admin Sodium Chloride 1,000 mls @ 999 mls/hr 03/17/19 03:33 03/17/19 03:39 Normal Saline IV 03/17/19 04:33 999 mls/hr ONETIME ONE Administration Magnesium Sulfate 2 gm/ Premix 50 mls @ 50 mls/hr 03/17/19 04:35 03/17/19 04: 48 IV 03/17/19 05:34 50 mls/hr ONETIME ONE Administration Influenza Virus Vaccine 1 each 03/17/19 02:57 Pharmacy To Dose - Influenza Vaccine IM 03/17/19 02:58 ONETIME ONE Influenza Virus Vaccine 60 mcg 03/17/19 03:00 03/17/19 03:39 Fluzone Quad [id number] Syringe IM 03/17/19 03:01 60 mcg .ONCE ONE Administration Ondansetron HCl 4 mg 03/17/19 03:33 03/17/19 03:39 Zofran IVPUSH 03/17/19 03:34 4 mg ONETIME ONE Administration - Re-Assessments/Exams Free Text/Narrative Re-Assessment/Exam: 03/17/19 03:34 As per the HPI, the patient has a common bile duct stricture, which causes him to have recurrent right upper quadrant abdominal pain, but does not cause nausea or vomiting. The patient's symptoms of nausea and vomiting tonight, therefore, are unlikely related to his common bile duct stricture. I explained to the patient that I am unable to tell him exactly why he developed the nausea and vomiting tonight; it could be due to a gastrointestinal virus, or as a side effect of one or more of his medications - I can only speculate. Since he was vomiting for a relatively short period of time, I would not expect him to have developed any significant electrolyte abnormalities, therefore I don't feel strongly that blood work needs to be done, however, the patient mentioned that he does not have a ride back home, therefore, since he is here, he would like us to check some blood work. While the patient does not have any nausea at this time, I will treat him with Zofran to prevent recurrence of nausea, and in the meantime, the patient will receive some IV fluid. The patient asked me if it would be possible to check on his common bile duct with a CT scan, but I do not see a medical indication for that at this time. The patient states that he was unaware that he has a perforated nasal septum. Based on his history, it is likely due to his prior snorting of cocaine. It explains why he thought his nosebleed was bilateral. 03/17/19 04:09 Notified by Mariia CALVO that the patient's oxygen saturation was dropping while he was sleeping. The patient acknowledged that he has obstructive sleep apnea, and ordinarily uses CPAP at night. We placed a couple of liters of oxygen per nasal cannula, to see if that resolves the problem at present. 03/17/19 04:36 The patient's CBC is remarkable for a Hgb slightly depressed at 13.3, and is otherwise unremarkable. His CMP is remarkable for BUN slightly elevated at 20, with a creatinine normal at 1.1. His blood glucose is mildly elevated at 139, with the remainder of his CMP being unremarkable. Of note, the patient's TBil is only 0.3. His magnesium level is depressed at 1.4. His lipase level is within normal limits at 144. I have ordered a 2 g Mg-rider. 03/17/19 07:20 I reevaluated the patient. He is looking and feeling well. I will go ahead and prepare his discharge paperwork, although he stated that his ride will not be here until 09:00. Departure - Departure Time of Disposition: 07:21 Disposition: Home, Self-Care 01 Condition: Good Clinical Impression: Nausea & vomiting, Epistaxis, Hypomagnesemia - Discharge Information *PRESCRIPTION DRUG MONITORING PROGRAM REVIEWED*: Not Applicable *COPY OF PRESCRIPTION DRUG MONITORING REPORT IN PATIENT NOLVIA: Not Applicable Referrals: PCP,None [Ordering Only Provider] - Dawson Gupta MD [Physician] - Sherine Maurice PA-C [Primary Care Provider] - Luba Guaman HOME CARE MUSIC THERAPIST [Nurse Practitioner] - Rajendra Fofana MD [Consulting Physician] - Angel Tello MD [Ordering Only Provider] - Socorro Elliott MD [Ordering Only Provider] - Forms: ED Department Discharge Additional Instructions: You were seen in the emergency room after developing nausea and vomiting, followed by a bloody nose, on 2 separate occasions last night. Workup in the ER included blood work, which found your magnesium level to be low , but was otherwise unremarkable. You were given IV fluid and IV magnesium in the ER. Follow-up with Dr. Dawson Monroy at your previously scheduled appointment on 04/01. Follow-up with your Gastroenterologic Surgeon at [facility], Dr. Angel Tello, as needed. If any other problems, please do not hesitate to return to the ER. - My Orders Last 24 Hours: My Active Orders 03/17/19 02:57 Influenza Vaccine Charge [RC] .DISCHARGE - Assessment/Plan Last 24 Hours: My Active Orders 03/17/19 02:57 Influenza Vaccine Charge [RC] .DISCHARGE
[2019-03-17] MEDS ORDERED: Magnesium Sulfate/Water 2 GM in Premix Bag 1 BAG IV ONE (04:35)
[2019-03-17 07:34] VITALS: BP 125/67; PULSE 70
== END 2019-03-17 09:00 | disposition home or self-care (01) ==
LOC: JD.ED 02:45
DX: R11.2 Nausea with vomiting, unspecified (principal); R04.0 Epistaxis; E83.42 Hypomagnesemia; G47.30 Sleep apnea, unspecified; K21.9 Gastro-esophageal reflux disease without esophagitis; E11.42 Type 2 diabetes mellitus with diabetic polyneuropathy; F17.210 Nicotine dependence, cigarettes, uncomplicated; E66.9 Obesity, unspecified; Z79.84 Long term (current) use of oral hypoglycemic drugs; Z88.8 Allergy status to other drugs, medicaments and biological substances; Z79.899 Other long term (current) drug therapy; Z79.82 Long term (current) use of aspirin; Z68.35 Body mass index [BMI] 35.0-35.9, adult; Z90.49 Acquired absence of other specified parts of digestive tract; Z23 Encounter for immunization
CPT/HCPCS: 36415; 80053; 83690; 83735; 85007; 85027; 90471; 90686; 96361; 96365; 96375; 99284; J2405; J3475; J7040; G0008

== ENCOUNTER 2020-02-01 13:20 | Emergency (ER) | payer BC ==
--- NOTE | 2020-02-01 13:54 | EDM.PDOC ---
ED HPI GENERAL MEDICAL PROBLEM - General Chief Complaint: Genitourinary Problem Stated Complaint: URINE DISCOLORATION/CHILLS Time Seen by Provider: 02/01/20 13:37 Source of Information: Reports: Patient History Limitations: Reports: No Limitations - History of Present Illness INITIAL COMMENTS - FREE TEXT/NARRATIVE: 64-year-old male from [facility] presents to the ED for evaluation of orange-colored urine. He does not think there is any extra smell to the urine. There is no dysuria urgency or frequency. He is appreciated this over the last 3 to 4 days. He states he has a problem with hyperbilirubinemia and has had orange-colored urine in the past. Patient was septic from a ruptured gallbladder in the past and had to have his gallbladder removed at which time he had choledocholithiasis which caused severe jaundice. After this it was felt that he had a mass inferior posterior to his pancreas and he went to the [facility] where he underwent a laparotomy. He states that he was told that he was so full of infection that they cannot pursue a Whipple's procedure is planned as they thought there was a possible tumor or carcinoma involving his pancreas. Therefore nothing was removed. Patient used to drink alcohol fairly heavily but drinks it only in moderation at this time. He has had a bout of pancreatitis in the past associated with the choledocholithiasis. He does not have any abdominal pain at this time but he has had fever and intermittent chills for the last 4-5 nights. Feels weak and tired. Appetite is only about half normal. Ports he is only eaten a little bit over the last 3-1/2 days but he did eat prior to coming into the hospital today. Bowel function is normal without diarrhea. He denies any dysuria urgency or frequency. He usually has nocturia once or twice nightly. Feels that he does empty his bladder completely. He does have a mild cough. 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 Therefore he has some concerns about cough COVID-19 infection. He has fever chills generalized myalgia and minimal non-productive cough. No recent changes to any of his medi cations. Onset: Gradual Onset Date: 01/29/20 Duration: Day(s):, Constant (Austell discoloration to his urine without taking an y Azo.) Location: Reports: Other (Orts orange-colored urine. Reports fever chills and low-grade fever.) Quality: Reports: Other Severity: Moderate (Generalized myalgia) Improves with: Reports: None Worsens with: Reports: None Context: Reports: Sick Contact (Owns a grocery store and is exposed to numerous people). Denies: Activity, Exercise, Lifting, Trauma, Other ( in his workplace.) Associated Symptoms: Reports: Cough, Fever/Chills (Chills usually in the evening), Loss of Appetite, Malaise (Decreased appetite.), Weakness, Other (Austell-colored urine.). Denies: No Other Symptoms (Productive), Confusion, Chest Pain, cough w sputum, Diaphoresis, Headaches, Nausea/Vomiting, Rash, Seizure, Shortness of Breath, Syncope Treatments ON AIR HOST: Reports: Other (see below) - Related Data Allergies Allergy/AdvReac Type Severity Reaction Status Date / Time venlafaxine [From Effexor] Allergy Severe Cannot Verified 02/01/20 13:48 Remember Home Meds: Home Meds Albuterol [Proair HFA] 2 puff INH Q4HR PRN 04/04/16 [History] Lisinopril 10 mg PO DAILY 04/04/16 [History] Pioglitazone HCl 45 mg PO DAILY 04/04/16 [History] Zolpidem [Ambien] 10 mg PO BEDTIME 04/04/16 [History] glipiZIDE [Glipizide Xl] 10 mg PO BID 04/04/16 [History] Aspirin [Halfprin] 81 mg PO DAILY #30 tab.ec 07/30/16 [Rx] Simvastatin [Zocor] 10 mg PO BEDTIME #10 tablet 07/30/16 [Rx] Cholecalciferol (Vitamin D3) [Vitamin D3] 3,000 unit PO DAILY 10/11/16 [History] Amoxicillin/Potassium Clav [Amox-Clav 500-125 mg Tablet] 1 tab PO BID 02/01/20 [History] Cefdinir [Omnicef] 300 mg PO BID #6 cap 02/01/20 [Rx] Past Medical History HEENT History: Reports: Impaired Vision Other HEENT History: wears glasses Cardiovascular History: Reports: Hypertension Respiratory History: Reports: Asthma (suspected, not tested), COPD (suspected, not tested), Sleep Apnea (nightly CPAP 10) Other Respiratory History: cough, emyphysema, URI Gastrointestinal History: Reports: Colon Polyp, GERD, Other (See Below) (Benign pancreatic tumor, excised. Common bile duct stenosis.) Other Gastrointestinal History: rectal bleeding Genitourinary History: Reports: Other (See Below) Other Genitourinary History: anorgasminsa, ED, low testosterone, hesitency, L orchiectomy Musculoskeletal History: Reports: Fracture (nose), Other (See Below) Other Musculoskeletal History: plantar fasciitis, neck surgery Neurological History: Reports: Neuropathy, Peripheral Psychiatric History: Reports: Anxiety Other Psychiatric History: fatigue, insomnia Endocrine/Metabolic History: Reports: Diabetes, Type II (Controlled with metformin and pioglitazone), Obesity/BMI 30+, Vitamin D Deficiency Oncologic (Cancer) History: Reports: Other (See Below) (Left testicular cancer, s/p orchiectomy + RTx) 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 Dermatologic History: Reports: Eczema Other Dermatologic History: skin tags, onychomycisis, rask tinea pedis, eczema - Infectious Disease History Infectious Disease History: Reports: Chicken Pox, Measles, Mumps - Past Surgical History HEENT Surgical History: Reports: Cataract Surgery GI Surgical History: Reports: Cholecystectomy (2018), Colonoscopy (x 4), EGD, ERCP (x 5, with 3 CBD stents), Other (See Below) (Whipple, incomplete) Neurological Surgical History: Reports: C-Spine (C3-C4 ACDF) Oncologic Surgical History: Reports: Other (See Below) (Left orchiectomy) Social & Family History - Family History Family Medical History: Noncontributory - Caffeine Use Caffeine Use: Reports: Coffee Other Caffeine Use: 2 cups coffee daily - Living Situation & Occupation Living situation: Reports: , Alone 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 Denies: Weight Loss Respiratory: Reports: Shortness of Breath, Cough (Usually on exertion.). Denies: Wheezing, Pleuritic Chest Pain, Sputum ( Nonproductive), Hemoptysis Cardiovascular: Reports: Dyspnea on Exertion. Denies: Chest Pain, Blood Pressure Problem, Claudication, Edema, Lightheadedness, Orthopnea Endocrine: Reports: Fatigue (Actively) GI/Abdominal: Denies: Abdominal Pain, Constipation, Diarrhea, Hematemesis : Reports: Other (Discoloration to the urine.) Musculoskeletal: Reports: Back Pain, Joint Pain (His hips neck and shoulders at times.) Skin: Reports: No Symptoms. Denies: Bruising Neurological: Reports: No Symptoms Psychiatric: Reports: No Symptoms Hematologic/Lymphatic: Reports: No Symptoms Immunologic: Reports: No Symptoms ED EXAM, GI/ABD - Physical Exam Exam: See Below Exam Limited By: No Limitations General Appearance: Alert, WD/WN, No Apparent Distress, Other (Temperature is 36.3 and does feel warmer than that to palpation. With a heart rate of 97. Respiratory is 20 BP 06/13/1968 pulse ox 96% on room air.) Eyes: Bilateral: Normal Appearance (I believe he has very slight scleral icterus. No pallor) Throat/Mouth: Normal Inspection, Normal Lips, Normal Oropharynx Neck: Normal Inspection, Supple, Non-Tender, Full Range of Motion. No: Carotid Bruit, Lymphadenopathy (L), Lymphadenopathy (R) Respiratory/Chest: No Respiratory Distress, Lungs Clear, Normal Breath Sounds, Chest Non-Tender Cardiovascular: Normal Peripheral Pulses, Regular Rate, Rhythm, No Edema, No Gallop, No JVD, No Murmur, No Rub GI/Abdominal Exam: Normal Bowel Sounds, Soft, Non-Tender, No Organomegaly, No Abnormal Bruit, No Mass, Pelvis Stable, Other (He has a large midline laparotomy wound from xiphisternum to the pelvis where he had exploratory surgery carried out at the [facility] looking for a) (Male) Exam: No Hernia Back Exam: Paraspinal Tenderness (Increased lordotic curvature. Paraspinal tenderness along the lumbar spine bilaterally.), Other Extremities: Normal Inspection, Normal Range of Motion, Non-Tender, No Pedal Edema Neurological: Alert, Oriented, CN II-XII Intact, Normal Cognition Psychiatric: Normal Affect, Normal Mood Skin Exam: Warm, Dry, Intact, Normal Color, No Rash Course - Vital Signs Last Recorded V/S: Last Vital Signs Temp 36.2 C 02/01/20 17:40 Pulse 85 02/01/20 17:40 Resp 18 02/01/20 17:40 BP 110/64 02/01/20 14:47 Pulse Ox 96 02/01/20 17:40 - Orders/Labs/Meds Orders: Active Orders 24 hr Category Date Time Status Abdomen Pelvis wo Cont [CT] Stat Exams 02/01/20 15:27 Taken CULTURE BLOOD [BC] Stat Lab 02/01/20 14:10 Received CULTURE BLOOD [BC] Stat Lab 02/01/20 14:20 Received CULTURE URINE [RM] Stat Lab 02/01/20 14:41 Received Blood Culture x2 Reflex Set [OM.PC] Stat Oth 02/01/20 13:49 Ordered Labs: Laboratory Tests 02/01/20 02/01/20 02/01/20 Range/Units 14:20 14:20 14:20 WBC 7.62 (4.23-9.07) K/mm3 RBC 4.93 (4.63-6.08) M/mm3 Hgb 14.9 (13.7-17.5) gm/dl Hct 45.4 (40.1-51.0) % MCV 92.1 D (79.0-92.2) fl MCH 30.2 (25.7-32.2) pg MCHC 32.8 (32.2-35.5) g/dl RDW Std Deviation 49.1 H (35.1-43.9) fL Plt Count 220 D (163-337) K/mm3 MPV 10.0 (9.4-12.3) fl Neutrophils % (Manual) 61 H (40-60) % Band Neutrophils % 0 (0-10) % Lymphocytes % (Manual) 27 (20-40) % Atypical Lymphs % 0 % Monocytes % (Manual) 9 (2-10) % Eosinophils % (Manual) 3 (0.8-7.0) % Basophils % (Manual) 0 L (0.2-1.2) Platelet Estimate Adequate RBC Morph Comment Normal PT 13.5 H (9.7-11.7) SECONDS INR 1.27 APTT 25 (22-31) SECONDS Sodium 134 L (136-145) mEq/L Potassium 3.9 (3.5-5.1) mEq/L Chloride 97 L (98-107) mEq/L Carbon Dioxide 25 (21-32) mEq/L Anion Gap 15.9 H (5-15) BUN 24 H (7-18) mg/dL Creatinine 2.1 H (0.7-1.3) mg/dL Est Cr Clr Drug Dosing TNP Estimated GFR (MDRD) 32 (>60) mL/min BUN/Creatinine Ratio 11.4 L (14-18) Glucose 267 H (80-115) mg/dL Lactic Acid (0.4-2.0) mmol/L Calcium 8.9 (8.5-10.1) mg/dL Magnesium 1.7 L (1.8-2.4) mg/dl Total Bilirubin 4.6 H (0.2-1.0) mg/dL GGT (15-85) U/L AST 274 H (15-37) U/L ALT 443 H (16-63) U/L Alkaline Phosphatase 380 H (46-116) U/L CK-MB (CK-2) 0.5 (0-3.6) ng/ml Troponin I < 0.017 (0.00-0.056) ng/mL C-Reactive Protein 18.1 H* (<1.0) mg/dL NT-Pro-B Natriuret Pep (0-125) pg/mL Total Protein 7.5 (6.4-8.2) g/dl Albumin 3.3 L (3.4-5.0) g/dl Globulin 4.2 gm/dL Albumin/Globulin Ratio 0.8 L (1-2) Lipase (73-393) U/L Urine Color (Yellow) Urine Appearance (Clear) Urine pH (5.0-8.0) Ur Specific Naylor (1.005-1.030) Urine Protein (Negative) Urine Glucose (UA) (Negative) Urine Ketones (Negative) Urine Occult Blood (Negative) Urine Nitrite (Negative) Urine Bilirubin (Negative) Urine Urobilinogen (0.2-1.0) Ur Leukocyte Esterase (Negative) Urine RBC (0-5) /hpf Urine WBC (0-5) /hpf Ur Squamous Epith Cells (0-5) /hpf Ur Transition Epith Cell (0-5) Urine Bacteria (FEW) /hpf Urine Mucus (FEW) /hpf SARS Virus RNA (PCR) (NEGATIVE) 02/01/20 02/01/20 02/01/20 Range/Units 14:20 14:20 14:20 WBC (4.23-9.07) K/mm3 RBC (4.63-6.08) M/mm3 Hgb (13.7-17.5) gm/dl Hct (40.1-51.0) % MCV (79.0-92.2) fl MCH (25.7-32.2) pg MCHC (32.2-35.5) g/dl RDW Std Deviation (35.1-43.9) fL Plt Count (163-337) K/mm3 MPV (9.4-12.3) fl Neutrophils % (Manual) (40-60) % Band Neutrophils % (0-10) % Lymphocytes % (Manual) (20-40) % Atypical Lymphs % % Monocytes % (Manual) (2-10) % Eosinophils % (Manual) (0.8-7.0) % Basophils % (Manual) (0.2-1.2) Platelet Estimate RBC Morph Comment PT (9.7-11.7) SECONDS INR APTT (22-31) SECONDS Sodium (136-145) mEq/L Potassium (3.5-5.1) mEq/L Chloride (98-107) mEq/L Carbon Dioxide (21-32) mEq/L Anion Gap (5-15) BUN (7-18) mg/dL Creatinine (0.7-1.3) mg/dL Est Cr Clr Drug Dosing Estimated GFR (MDRD) (>60) mL/min BUN/Creatinine Ratio (14-18) Glucose (80-115) mg/dL Lactic Acid 1.3 (0.4-2.0) mmol/L Calcium (8.5-10.1) mg/dL Magnesium (1.8-2.4) mg/dl Total Bilirubin (0.2-1.0) mg/dL GGT 1569 H (15-85) U/L AST (15-37) U/L ALT (16-63) U/L Alkaline Phosphatase (46-116) U/L CK-MB (CK-2) (0-3.6) ng/ml Troponin I (0.00-0.056) ng/mL C-Reactive Protein (<1.0) mg/dL NT-Pro-B Natriuret Pep 467 H (0-125) pg/mL Total Protein (6.4-8.2) g/dl Albumin (3.4-5.0) g/dl Globulin gm/dL Albumin/Globulin Ratio (1-2) Lipase (73-393) U/L Urine Color (Yellow) Urine Appearance (Clear) Urine pH (5.0-8.0) Ur Specific Naylor (1.005-1.030) Urine Protein (Negative) Urine Glucose (UA) (Negative) Urine Ketones (Negative) Urine Occult Blood (Negative) Urine Nitrite (Negative) Urine Bilirubin (Negative) Urine Urobilinogen (0.2-1.0) Ur Leukocyte Esterase (Negative) Urine RBC (0-5) /hpf Urine WBC (0-5) /hpf Ur Squamous Epith Cells (0-5) /hpf Ur Transition Epith Cell (0-5) Urine Bacteria (FEW) /hpf Urine Mucus (FEW) /hpf SARS Virus RNA (PCR) (NEGATIVE) 02/01/20 02/01/20 02/01/20 Range/Units 14:20 14:47 14:53 WBC (4.23-9.07) K/mm3 RBC (4.63-6.08) M/mm3 Hgb (13.7-17.5) gm/dl Hct (40.1-51.0) % MCV (79.0-92.2) fl MCH (25.7-32.2) pg MCHC (32.2-35.5) g/dl RDW Std Deviation (35.1-43.9) fL Plt Count (163-337) K/mm3 MPV (9.4-12.3) fl Neutrophils % (Manual) (40-60) % Band Neutrophils % (0-10) % Lymphocytes % (Manual) (20-40) % Atypical Lymphs % % Monocytes % (Manual) (2-10) % Eosinophils % (Manual) (0.8-7.0) % Basophils % (Manual) (0.2-1.2) Platelet Estimate RBC Morph Comment PT (9.7-11.7) SECONDS INR APTT (22-31) SECONDS Sodium (136-145) mEq/L Potassium (3.5-5.1) mEq/L Chloride (98-107) mEq/L Carbon Dioxide (21-32) mEq/L Anion Gap (5-15) BUN (7-18) mg/dL Creatinine (0.7-1.3) mg/dL Est Cr Clr Drug Dosing Estimated GFR (MDRD) (>60) mL/min BUN/Creatinine Ratio (14-18) Glucose (80-115) mg/dL Lactic Acid (0.4-2.0) mmol/L Calcium (8.5-10.1) mg/dL Magnesium (1.8-2.4) mg/dl Total Bilirubin (0.2-1.0) mg/dL GGT (15-85) U/L AST (15-37) U/L ALT (16-63) U/L Alkaline Phosphatase (46-116) U/L CK-MB (CK-2) (0-3.6) ng/ml Troponin I (0.00-0.056) ng/mL C-Reactive Protein (<1.0) mg/dL NT-Pro-B Natriuret Pep (0-125) pg/mL Total Protein (6.4-8.2) g/dl Albumin (3.4-5.0) g/dl Globulin gm/dL Albumin/Globulin Ratio (1-2) Lipase 194 (73-393) U/L Urine Color Jane H (Yellow) Urine Appearance Slt cloudy H (Clear) Urine pH 5.0 (5.0-8.0) Ur Specific Naylor > or = 1.030 (1.005-1.030) Urine Protein 2+ H (Negative) Urine Glucose (UA) Negative (Negative) Urine Ketones 1+ H (Negative) Urine Occult Blood Negative (Negative) Urine Nitrite Negative (Negative) Urine Bilirubin 3+ H (Negative) Urine Urobilinogen 1.0 (0.2-1.0) Ur Leukocyte Esterase Negative (Negative) Urine RBC 0-5 (0-5) /hpf Urine WBC 5-10 H (0-5) /hpf Ur Squamous Epith Cells 5-10 H (0-5) /hpf Ur Transition Epith Cell 10-20 H (0-5) Urine Bacteria Many H (FEW) /hpf Urine Mucus Few (FEW) /hpf SARS Virus RNA (PCR) Negative (NEGATIVE) Meds: Medications Discontinued Medications Generic Name Dose Route Start Last Admin Trade Name Freq PRN Reason Stop Dose Admin Sodium Chloride 1,000 mls @ 250 mls/hr 02/01/20 14:00 02/01/20 14:45 Normal Saline IV 250 mls/hr ASDIRECTED BRIONNA Administration Ertapenem 1 gm/ Sodium 50 mls @ 100 mls/hr 02/01/20 16:27 02/01/20 17:27 Chloride IV 02/01/20 16:56 Not Given ONETIME ONE Ertapenem 1 gm/ Sodium 50 mls @ 100 mls/hr 02/01/20 17:15 02/01/20 17:27 Chloride IV 02/01/20 17:44 100 mls/hr ONETIME ONE Administration - Radiology Interpretation Free Text/Narrative:: 64-year-old male presents to the ED with a history of intermittent fever and chills particularly at night the last 3-4 nights. He is appreciated increased oranges discoloration to his urine without any dysuria or frequency. He has a history of a septic event secondary to a ruptured gallbladder and choledocholithiasis causing pancreatitis and jaundice. He has had previous cholecystectomy. After this they found that there was a suspect tumor in the posterior aspect of his pancreas and he went to the [facility] where the plan was to do a Whipple's procedure. However when they open them up they found that there was several areas of infection in the abdomen and they closed him up without any thing being removed. Patient has a history therefore pancreatitis but currently has no pain. 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 He is exposed to of course numerous people. He has mild diffuse myalgia and nonproductive cough. Plan he will have a septic work-up carried out at this time although his blood pressure and vital signs are normal. No obvious source of fever is appreciated on exam. Will have a COVID-19 screen as well as part of his work-up. IV will be normal saline at 250 mils per hour. - Re-Assessments/Exams Free Text/Narrative Re-Assessment/Exam: 02/01/20 15:23 test x-ray reveals heart rate size and mediastinum to be normal. Lungs are clear with no acute parenchymal changes. There is an old healed right clavicle fracture appreciated. 02/01/20 15:25 White count is 7.62 with differential pending. Hemoglobin is 14.9 with hematocrit of 45.4. Platelet count is 220,000. PT is 13.5 with an INR of 1.27 i.e. mild auto anticoagulation. PTT is 25. Sodium slightly low at 134 with a potassium of 3.9. Chloride 97 with a bicarb of 25. Anion gap is slightly elevated at 15.9. BUN is 24 with a creatinine of 2.1 and a GFR of 32 i.e. significant stage III chronic kidney disease. Glucose was 267 in the lab. Lactic acid 1.3 calcium 8.9 magnesium slightly low at 1.7. Bilirubin is elevated at 4.6 with an AST of 274 and an ALT of 443. Alk phos days is 380. A GGT will now be ordered. CK-MB fraction was 0.5 troponin I less than 0.017. BNP mildly elevated at 467. Total protein 7.5 with an albumin fraction of 3.3. Concern is for possible biliary tree obstruction. CT of the abdomen will be performed without contrast due to elevated troponin. Of note lipase is pending. 02/01/20 16:26 White count is 7.62. The differential shows 61% neutrophils and no bands cells. Mentioned above he is auto anticoagulated with an INR of 1.27 and a PT of 13.5. Actiq acid is 1.3. Total bilirubin is 4.6 with a GGT markedly elevated at 1569 AST of 274 and an ALT of 443. Alk phos days is 380 suggesting biliary tree obstruction. C-reactive protein is 18.1. This is concerning for possible biliary tree obstruction with potential for a sending cholangitis. BNP is 467. Urinalysis now available shows 2+ proteinuria 1+ ketones and 3+ bilirubin. 5-10 WBCs per high-power field and 5-10 squamous epithelial cells. There is also 10-20 transitional epithelial cells suggesting coming from the bladder. Many bacteria are present. A urine culture will be ordered. 02/01/20 16:47 Patient now admits that he has had multiple stents placed primarily in the common bile duct by Dr. Mcduffie--graphics editor at [facility] in [place]. Last time was about [address] Mcduffie--graphics editor that the procedure was far too difficult and that he would have to go elsewhere if he required further stent placement. Going to place the patient on Invanz 1 g IV 02/01/20 17:50 CT of the abdomen pelvis has been completed without any contrast due to the patient's high creatinine of 2.1 and IV contrast would be of little use. Visualized lung bases show nothing acute. Liver shows diffuse fatty infiltration. Mild intrahepatic biliary air is seen. Previous cholecystectomy noted. Adrenal glands show no nodules. Pancreas shows no discrete abnormality kidneys show no hydronephrosis no ureteral calculi are seen. Aorta shows atherosclerotic calcification which continues into the iliac vessels. No retroperitoneal adenopathy is seen. No aneurysm is seen no pelvic mass or adenopathy is noted. Small fat-containing left inguinal hernia is noted appendix is seen and appears to be normal. Bone window settings were reviewed which show scattered degenerative change within the spine. Comment was made on the size of the common bile duct. Of a 19 screen is negative. 02/01/20 17:53 the options with the patient. At this point time he feels well. Both hospitals in [place] are on diversion and he would have to travel to [place] for care. He certainly does not feel sick enough to need to be transferred per air. He believes he could find a friend to drive him to [place] if not tonight first thing in the morning. He has just completed a dose of Invanz 1 g. Discussed case with graphics editor at [facility] in [place] and see what they have to say. Patient has been advised that this is a potential very serious infection and he could develop ascending cholangitis which could be fatal to him. 02/01/20 18:[address] Ramos from the department of gastroenterology at [facility] in [place]. He has accepted care of this patient. The problem is getting the patient to [place]. He believes he has a sister who can transport him but it may not be until tomorrow morning because they are afraid to drive at night in the dark. He is reluctant to try and fly to [place] at this time due to the cost. Her hospital is on diversion as well. Therefore he prefers to be discharged from this hospital travel back to [place] to collect his belongings and his sister to drive him to [place]. It is unclear what time that will occur. He was advised that he needs to be n.p.o. after midnight for potential stent placement. He has been through this many times in the past through [facility] in [place]. Apparently it was suggested to him that his common bile duct is quite narrow and that he may benefit from going to a larger center where the duct could in fact be dilated. I do not have any information in this regard. Patient will be placed on Omnicef 300 mg twice daily until he can reach [place]. 4 tablets were provided. He will discontinue his Augmentin tablets during this timeframe. 02/01/20 18:55 no matter how I tried I cannot convince this patient of the need for the necessity to travel to [place] as soon as possible due to suspect occlusion of his common bile duct. He is at risk of an infective process such as ascending cholangitis which could be life-threatening. His plans at this time are to travel back to [place] to collect his belongings that he would need in [place] and hopefully have his sister drive him to [place] as soon as possible. Whether this is going to happen tonight or not is unclear to me. Departure - Departure Time of Disposition: 18:55 Disposition: DC/Tfer to Acute Hospital 02 Condition: Serious Clinical Impression: Obstruction of biliary tree Fever Qualifiers: Fever type: unspecified Qualified Code(s): R50.9 - Fever, unspecified - Discharge Information *PRESCRIPTION DRUG MONITORING PROGRAM REVIEWED*: Not Applicable *COPY OF PRESCRIPTION DRUG MONITORING REPORT IN PATIENT NOLVIA: Not Applicable Prescriptions: Cefdinir [Omnicef] 300 mg PO BID #6 cap Instructions: Cholangitis, Fever, Adult, [id number] Referrals: Luba Guaman [employer] CUTTER [Primary Care Provider] - Forms: ED Department Discharge Additional Instructions: A bed has been made available to you at [facility] in [facility] [place]. Dr. Ramos from the department of gastroenterology has accepted care. You are to travel to that facility as soon as possible for admission to the hospital. It appears that you once again will likely need biliary tree stenting to remove obstruction likely of secretions that have hardened within the duct causing obstruction. You are at risk of developing a serious infection of the biliary tree called a sending cholangitis which could prove fatal to you. This continue your Augmentin tablets for the next few days until discharge from the hospital. Take Omnicef 300 mg twice daily until completion of the procedure in [place]. Sepsis Event Note (ED) - Focused Exam Vital Signs: Vital Signs Temp Pulse Resp BP Pulse Ox 02/01/20 17:40 36.2 C 85 18 96 02/01/20 14:47 86 16 110/64 94 L 02/01/20 13:47 36.3 C 97 20 119/69 96 - My Orders Last 24 Hours: My Active Orders 02/01/20 13:49 Blood Culture x2 Reflex Set [OM.PC] Stat 02/01/20 14:10 CULTURE BLOOD [BC] Stat 02/01/20 14:20 CULTURE BLOOD [BC] Stat 02/01/20 14:41 CULTURE URINE [RM] Stat 02/01/20 15:27 Abdomen Pelvis wo Cont [CT] Stat - Assessment/Plan Last 24 Hours: My Active Orders 02/01/20 13:49 Blood Culture x2 Reflex Set [OM.PC] Stat 02/01/20 14:10 CULTURE BLOOD [BC] Stat 02/01/20 14:20 CULTURE BLOOD [BC] Stat 02/01/20 14:41 CULTURE URINE [RM] Stat 02/01/20 15:27 Abdomen Pelvis wo Cont [CT] Stat
[2020-02-01] MEDS ORDERED: Sodium Chloride 0.9% 1,000 ML IV SCH (14:00)
[2020-02-01 14:48] VITALS: BP 110/64
--- NOTE | 2020-02-01 15:11 | CR ---
Chest: Portable view of the chest was obtained. Comparison: Prior chest x-ray of 11/03/19. Heart size and mediastinum are normal. Lungs are clear with no acute parenchymal change. Bony structures are grossly intact. Old healed right clavicle fracture deformity is noted. Impression: 1. Findings as noted above. 2. Nothing acute is seen. Diagnostic code #2 This report was dictated in MDT
[2020-02-01] MEDS ORDERED: Ertapenem 1 GM in Sodium Chloride 0.9% 50 ML IV ONE ×2 (16:27→17:15)
[2020-02-01 17:41] VITALS: PULSE 85
--- NOTE | 2020-02-01 17:45 | CT ---
CT abdomen and pelvis Technique: Multiple axial sections were obtained from above the dome of the diaphragm inferiorly through the pubic symphysis. Intravenous contrast and oral contrast not given. Findings: Visualized lung bases show nothing acute. Liver shows diffuse fatty infiltration. Mild intrahepatic biliary air is seen. Previous cholecystectomy is noted. Adrenal glands show no nodule. Pancreas shows no discrete abnormality. Kidneys show no hydronephrosis. No ureteral calculi are seen. Aorta shows atherosclerotic calcification which continues into the iliac vessels. No retroperitoneal adenopathy is seen. No aneurysm is seen. No pelvic mass or adenopathy is noted. Small fat-containing left inguinal hernia is noted. Appendix is seen and appears to be normal. Bone window settings were reviewed which show scattered degenerative change within the spine. Impression: 1. Fatty infiltration within the liver. 2. Intrahepatic biliary air with evidence of prior cholecystectomy. 3. Other findings as noted above which are believed to be incidental. Nothing acute is appreciated. Diagnostic code #2 This report was dictated in MDT
== END 2020-02-01 19:16 ==
LOC: JD.ED 13:20
DX: K83.1 Obstruction of bile duct (principal); R50.9 Fever, unspecified; I10 Essential (primary) hypertension; J43.9 Emphysema, unspecified; E11.42 Type 2 diabetes mellitus with diabetic polyneuropathy; Z20.828 Contact with and (suspected) exposure to other viral communicable diseases; Z88.8 Allergy status to other drugs, medicaments and biological substances; Z79.82 Long term (current) use of aspirin; Z79.899 Other long term (current) drug therapy; Z79.84 Long term (current) use of oral hypoglycemic drugs
CPT/HCPCS: 36415; 71045; 74176; 80053; 81001; 82553; 82977; 83605; 83690; 83735; 83880; 84484; 85007; 85027; 85610; 85730; 86140; 87040; 87086; 87635; 96361; 96365; 99285; J1335; J7030; J7050; U0002